=== PATIENT | female | born 1995 | race Caucasian/White ===

== ENCOUNTER → 2020-07-06 16:18 | Outpatient (REF) | payer BC, SELFPAY | LOC: ANHLAB 16:18 | PROVIDERS: PCP Family Medicine; Visit Provider Nurse Practitioner | DX: D22.62 Melanocytic nevi of left upper limb, including shoulder (principal) | CPT/HCPCS: 88305 ==

== ENCOUNTER 2023-04-19 10:09 | Outpatient (CLI) | payer BC, SELFPAY ==
[2023-04-19 10:56] LABS: Hematocrit 36.2 % (37.0-47.0); Hemoglobin 12.2 g/dL (12.0-15.0); Mean Corpuscular HGB Conc 33.7 g/dl (32-36); Mean Corpuscular Hemoglobin 31.9 pg (26-34); Mean Corpuscular Volume 94.8 fl (80-100); Mean Platelet Volume 10.8 fl (7.4-10.4); Platelet Count Result 221 k/mm3 (150-375); Red Blood Count 3.82 M/mm3 (4.2-5.4); Red Cell Distribution Width 12.6 % (11.5-14.5); White Blood Count 10.2 K/mm3 (4.5-10.0)
[2023-04-19 15:39] LABS: Rapid Plasma Reagin Non-Reactive (NonReactive)
== END 2023-04-19 10:10 | disposition home or self-care (01) ==
LOC: ANHLAB 10:11
PROVIDERS: PCP Family Medicine; Visit Provider Obstetrics & Gynecology
DX: Z34.93 Encounter for supervision of normal pregnancy, unspecified, third trimester (principal); Z3A.00 Weeks of gestation of pregnancy not specified
CPT/HCPCS: 36415; 85027; 86592; 86850; 86900; 86901

== ENCOUNTER 2023-04-20 09:57 | Inpatient (IN) | payer BC, SELFPAY ==
[2023-04-20] VITALS (51 sets, daily range): BP systolic 105–155; BP diastolic 54–92; PULSE 61–85; RESP 13–19; TEMP 36.4–36.7; O2SAT 95–100; BMI 35.8
--- NOTE | 2023-04-20 10:46 | LDADM ---
This patient, Ivelisse Gao, was admitted to Labor/Delivery/Recovery 119 on 04/20/23 at 09:57. Plans for labor, pain management and were discussed with patient. Patient/family oriented to hospital policies and general routines including ID bracelet, bed and alarms, visiting hours, pain management, procedures, bathroom and other care routines, personal items, smoking policy, room service/diet and guest tray routines, infant security routines, and visiting hours. Patient/Family are encouraged to report perceived risks to care and to ask questions if they do not understand what they are told or what they should do. See OBIX for further documentation.
[2023-04-20] MEDS: LACTATED RINGERS 1,000 ML 125 ML IV CONT (11:09)
--- NOTE | 2023-04-20 11:50 | PM.IMHP ---
H&P: HPI History of Present Illness Date/Time: 04/20/23 11:50 Chief Complaint: section for breech Narrative: Zofia is a 27yo G1 at 39.1 here for primary CS for breech. has been complicated by COVID during . Growth 86% with a LGA head. BSUS confirms breech just now. Review of Systems Review of Systems: All systems reviewed & are unremarkable except as noted in HPI and below PMFSH Past Medical History Medical History Abdominal pain Ovarian cyst Surgical History Surgical History History of wisdom tooth extraction Family History Family History (Updated 04/04/23 @ 13:53 by Kasey Ray RN) Mother Hypertension Social History Social History Smoking status: Never smoker Second hand tobacco smoke exposure: No Alcohol intake: current Substance use: never Substance use type: does not use Lack of Transportation: No Lack of Food: Never True Current Housing: I Have Housing Concerned About Future Housing: No Difficulty Paying Gas/Electric Bills: No Difficulty Paying for Meds: No Currently Unemployed: No Education: Master's Degree or Higher Difficulty w/ Childcare or Family Care: No Living arrangements: with family Occupation/Education: occupation Gender identity (if verbalized by the patient): Female Sexual Orientation (if Verbalized by the Patient): Straight or Heterosexual Spiritual care concerns: No Meds Home Medications and Allergies Home Medications Medication Instructions Recorded Confirmed Type PNV 153-FA 400 mcg-om3 35 mg-dha 1 tablet PO DAILY 04/04/23 04/20/23 History 25 mg-epa 5 mg-fish oil chew tablet ( Gummies) Allergies Allergy/AdvReac Type Severity Reaction Status Date / Time Agave AdvReac Nausea and Uncoded 04/20/23 10:43 Vomiting Vital Signs Vital Signs - 24 hr 04/20/23 10:21 04/20/23 10:46 04/20/23 11:01 Pulse Rate 79 85 82 Blood Pressure 155/86 H 128/75 126/76 Oxygen Delivery 04/20/23 11:16 04/20/23 11:31 04/20/23 11:46 Pulse Rate 75 72 73 Blood Pressure 118/60 133/80 140/69 Oxygen Delivery 04/20/23 10:45 Pulse Rate Blood Pressure Oxygen Delivery Room Air Exam Const: General: no acute distress Resp: Effort & Inspection: normal respiratory effort Auscultation: clear to auscultation bilaterally Cardio: Rate: regular rate Rhythm: regular rhythm GI: GI Palp: Yes Soft to palpation Extrem: General: normal to inspection Assessment and Plan Assessment and plan (1) Breech presentation: Code(s): O32.1XX0 - Maternal care for breech presentation, not applicable or unspecified Status: Acute Plan FHT category 1 Consented for CS for breech, discussed RBA, will proceed ancef
--- NOTE | 2023-04-20 11:56 | WPDHPUPDATE1 ---
History and Physical Update Update Date/Time: 04/20/23 11:56 History and Physical has been reviewed, including an updated exam of the patient. There are NO changes in the patient's condition. Risks, benefits, and alternatives have been discussed and questions answered. Patient agrees to proceed with procedure.
--- NOTE | 2023-04-20 12:10 | P.PNAN_ITS ---
Anes - Initial Pre Proc Eval Procedure: Operation Date: 04/20/23 12:00 Proposed Procedures p Section - Elizabeth Zapata MD Date/Time: 04/20/23 12:10 Surgeon: Heron Hardy MD Pre Op Diagnosis: c/s Patient Data Age: 27 Gender: F Height: 1.75 m Weight: 110 kg Last Vital Signs Pulse 76 04/20/23 12:01 BP 134/71 04/20/23 12:01 O2 Del Method Room Air 04/20/23 10:45 Allergies Allergy/AdvReac Type Severity Reaction Status Date / Time Agave AdvReac Nausea and Uncoded 04/20/23 10:43 Vomiting Home Medications Medication Instructions Recorded Confirmed Type PNV 153-FA 400 mcg-om3 35 mg-dha 1 tablet PO DAILY 04/04/23 04/20/23 History 25 mg-epa 5 mg-fish oil chew tablet ( Gummies) Patient hx anesthesia problems: none Family hx anesthesia problems: none Results Review: All pre-operative results and documents have been reviewed as part of the pre- operative evaluation. [facility] Past Medical History Medical History Abdominal pain Ovarian cyst Surgical History Surgical History History of wisdom tooth extraction Family History Family History Mother Hypertension Social History Social History Smoking status: Never smoker Second hand tobacco smoke exposure: No Alcohol intake: current Substance use: never Substance use type: does not use Lack of Transportation: No Lack of Food: Never True Current Housing: I Have Housing Concerned About Future Housing: No Difficulty Paying Gas/Electric Bills: No Difficulty Paying for Meds: No Currently Unemployed: No Education: Master's Degree or Higher Difficulty w/ Childcare or Family Care: No Living arrangements: with family Occupation/Education: occupation Gender identity (if verbalized by the patient): Female Sexual Orientation (if Verbalized by the Patient): Straight or Heterosexual Spiritual care concerns: No Anes - Eval Final PreProcedure Day of Procedure 04/20/23 12:10 Patient weight: obese Heart: regular rate and rhythm Lungs: clear to auscultation Airway: Mallampati scale class II Neurological: alert and oriented Last oral intake: >/= 8 hours ASA classification: II Emergent: no Anesthetic plan: proceed Anesthesia type and monitoring: regional spinal and standard monitoring Results Review: All pre-operative results and documents have been reviewed as part of the pre- operative evaluation. Informed Consent: The patient's anesthetic plan and its attendant risks and benefits were discussed with the patient/family/POA. Questions were solicited and answers provided to the satisfaction of the patient/family/POA.
[2023-04-20] MEDS: ceFAZolin 2 GM/D5W 50 ML 2 GM/50 ML BAG IVPB (12:12)
--- NOTE | 2023-04-20 13:26 | P.PCNOB_ITS ---
OB - Delivery Note Procedure Delivery date: 04/20/23 Procedure: Procedures Operation Date: 04/20/23 12:00 <No data on this case meets the specified criteria> primary low transverse section Events: Breech Presentation Route of delivery: Specimen: Yes (placenta) Quantitative Blood Loss (ml): 1,160 Anesthesia type: Spinal Disposition: Floor Complications: hemorrhage from hysterotomy bilateral extensions Narrative: Preop Dx: IUP 39w, breech Post Op Dx: same The patient was taken to the OR and received spinal anesthesia. She was placed in dorsal supine position with left lateral tilt. SCDs and roldan were placed. She was prepped and draped in the normal sterile fashion. A Pfannensteil skin incision was made and carried through to the underlying layer of fascia. The fascia was incised in the midline and then extended laterally using Burkett scissors. The muscles were in the midline and the peritoneum was entered bluntly. The peritoneal incision was extended inf eriorly and superiorly with care to avoid the bladder. The bladder blade was then inserted, the vesicouterine peritoneum was grasped, incised with Metzenbaum scissors, and a bladder flap created. The bladder blade was reinserted. A low transverse uterine incision was made with a scalpel and extended bluntly. AROM was performed and fluid was noted to be clear. The baby was delivered in breech presentation easily. The baby's head extended the hysterotomy laterally in both directions. The baby's oropharynx was suctioned. After 30 seconds, the cord was clamped and cut and the was handed off. Cord blood was obtained and the placenta was then removed manually. The uterus was exteriorized. A moist lap sponge was used to curette the endometrium. The uterine incision was then closed with two layers of 0-Vicryl in a running, locking fashion. The extensions into branches of the uterine arteries on both sides bled briskly but were made hemostatic easily with sutures. Good hemostasis was noted. The posterior cul de sac was irrigated with normal saline and cleared of all clot and debris. The uterus was returned to the abdomen. Both lateral gutters were then irrigated. The rectus muscles were inspected and found to be hemostatic. The fascia was reapproximated using 0-Vicryl in running fashion. The subcutaneous tissue was irrigated with normal saline and made hemostatic with Bovie electrocautery. The subcutaneous tissue was reapproximated with a layer of running 2-0 plain gut. The skin was then closed with absorbable danielle. Steri strips and a bandage were applied. The uterus was evacuated. The patient tolerated the procedure very well. All counts were correct. She was taken to the recovery room in good condition. [place] Baby Date of : 04/20/23 Time of : 12:44 Weeks of gestation at delivery: 39 Infant gender: Male Weight (pounds): 8 Weight (ounces): 4 presentation: steven breech Placenta delivery description: Manual Removal Cord Vessel Description: 3 Vessels and Delayed Cord Clamping score one minute: 8 score five minutes: 9
[2023-04-20] MEDS: HYDROcodone/acetaminophen (*CRX) 5-325 MG TABLET 1 TAB PO (15:28)
[2023-04-20] MEDS: OXYTOCIN 30 UNITS/NS 500 ML 30 UNITS/500 ML BAG 125 UNITS IV CONT (15:33)
[2023-04-20] MEDS: IBUPROFEN 600 MG TABLET PO (16:42)
--- NOTE | 2023-04-20 18:59 | OBPPTRN ---
1542 Patient transferred to post room #279 via stretcher. Support person present. Oriented to unit, room, information board, rooming in, admission packet and security measures. Patient verbalizes understanding.
[2023-04-20] MEDS: DEXTROSE 5%/0.45% SOD CHL 1,000 ML 125 ML IV CONT (19:59)
[2023-04-21] VITALS (7 sets, daily range): BP systolic 106–134; BP diastolic 47–73; PULSE 66–91; RESP 18–22; TEMP 36.3–38.9; O2SAT 97–100
[2023-04-21] MEDS: IBUPROFEN 600 MG TABLET PO ×4 (00:26→20:59)
[2023-04-21] MEDS: HYDROcodone/acetaminophen (*CRX) 5-325 MG TABLET 1 TAB PO ×2 (04:37→21:00)
[2023-04-21 04:38] LABS: Basophils Absolute Auto 0.1 K/mm3 (0.0-0.1); Basophils Percent Auto 0.5 % (0.2-1.2); Eosinophils Percent Auto 0.1 % (0-4.4); Hematocrit 26.5 % (37.0-47.0); Hemoglobin 8.8 g/dL (12.0-15.0); Immature Granulocyte Absolute 0.03 K/mm3 (0.00-0.031); Immature Granulocyte Percent A 0.3 % (0-0.5); Lymphocytes Absolute Auto 1.32 K/mm3 (0.9-3.2); Lymphocytes Percent Auto 12.6 % (18.3-44.2); Mean Corpuscular HGB Conc 33.2 g/dl (32-36); Mean Corpuscular Hemoglobin 32.4 pg (26-34); Mean Corpuscular Volume 97.4 fl (80-100); Mean Platelet Volume 10.7 fl (7.4-10.4); Monocytes Absolute Auto 0.7 K/mm3 (0.1-0.6); Monocytes Percent Auto 6.9 % (2.6-8.5); Neutrophils Absolute Auto 8.3 K/mm3 (1.3-6.7); Neutrophils Percent Auto 79.6 % (45.5-73.1); Platelet Count Result 154 k/mm3 (150-375); Red Blood Count 2.72 M/mm3 (4.2-5.4); Red Cell Distribution Width 12.8 % (11.5-14.5); White Blood Count 10.4 K/mm3 (4.5-10.0)
--- NOTE | 2023-04-21 05:22 | P.PNOB_ITS ---
OB - PN: Subj Subjective Date/time seen: 04/21/23 05:22 Interval history: pp day 1 primary section, breech presentation doing well pain management breast feeding plan IV iron OB - PN: Obj Data Labs 04/21/23 04:34 Labs: Laboratory Results - last 24 hr 04/21/23 04:34 WBC 10.4 H RBC 2.72 L Hgb 8.8 L D Hct 26.5 L MCV 97.4 MCH 32.4 MCHC 33.2 RDW 12.8 Plt Count 154 MPV 10.7 H Immature Gran % (Auto) 0.3 Neut % (Auto) 79.6 H Lymph % (Auto) 12.6 L Johnston % (Auto) 6.9 Eos % (Auto) 0.1 Baso % (Auto) 0.5 Lymph # (Auto) 1.32 Johnston # (Auto) 0.7 H Eos # (Auto) 0.0 Baso # (Auto) 0.1 Abs Immat Gran (auto) 0.03 Absolute Neuts (auto) 8.3 H Absolute Nucleated RBC 0.0 Nucleated RBC % 0.0 OB - PN A/P Plan day: 1 Plan: routine care Time Spent With Patient Time: Total time spent is greater than 50% in coordination of care (as documented) at patient's floor/unit and/or counseling patient: Review of Systems Review of Systems: All systems reviewed & are unremarkable except as noted in HPI and below Exam Const: General: cooperative and healthy appearing Chest: Chest palpation & inspection: normal inspection of the chest Resp: Effort & Inspection: normal respiratory effort Cardio: Rate: regular rate Rhythm: regular rhythm GI: Other: incision CDI Back/Spine/Pelvis: Back: no CVA tenderness Skin: General skin exam: normal color Neuro: General: patient oriented x3 Extrem: Right lower extremity: edema Left lower extremity: edema Psych: Appearance: grossly normal
[2023-04-21] MEDS: DOCUSATE SODIUM 100 MG CAPSULE PO ×2 (07:23→17:16)
[2023-04-21] MEDS: IRON SUCROSE COMPLEX 400 MG in SODIUM CHLORIDE 0.9% IV 250 ML 108 MG IVPB (07:23)
[2023-04-21] MEDS: HYDROcodone/acetaminophen (*CRX) 10-325 MG TABLET 1 TAB PO ×3 (07:25→17:15)
[2023-04-21] MEDS: MULTIVIT/MIN/PREN/FOL AC/IRON TABLET 1 TAB PO (10:15)
--- NOTE | 2023-04-21 12:54 | WPDANLDPN2 ---
Anes-Prog Note L&D Date/Time: 04/21/23 12:54 Comfortable throughout: section Neuraxial method: spinal Epidural/Spinal procedure site: clean & non-tender Neuro status: Neuro function grossly intact. Cardiovascular status: normal Respiratory status: normal Airway patency: baseline Mental status: baseline Post-Op hydration status: normal Vital Signs: Last Vital Signs Temp 98.1 F 04/21/23 07:15 Pulse 66 04/21/23 07:15 Resp 18 04/21/23 07:15 BP 106/56 L 04/21/23 07:15 Pulse Ox 97 04/21/23 07:15 O2 Del Method Room Air 04/21/23 04:51 Pain score (VAS): 6 I/O: Intake & Output 04/20/23 04/21/23 04/21/23 23:59 07:59 15:59 Intake Total 1500 2900 1000 Output Total 3600 1000 Balance 1500 -700 0 Post-procedural complaints: none Patient feedback: Patient satisfied with anesthetic care.
--- NOTE | 2023-04-21 12:55 | WPDANLDNPN2 ---
Anes-Prog Note L&D-Neuraxial Date/Time: 04/21/23 12:55 Neuraxial medications: intrathecal PF morphine Opiod-related complaints: none Patient feedback: Patient satisfied with post-operative pain management.
[2023-04-21] MEDS: AMPICILLIN 2 GM/NS 100 ML 2 GM/100 ML BAG IVPB (14:55)
[2023-04-21] MEDS: CLINDAMYCIN 900 MG/D5W 50 ML 900 MG/50 ML PIGGYBACK 50 MG IVPB (17:11)
[2023-04-21] MEDS: SODIUM CHLORIDE 0.9% IV 250 ML 30 ML (17:16)
[2023-04-21] MEDS: AMPICILLIN 1 GM/NS 50 ML 1 GM/50 ML BAG IVPB (20:50)
[2023-04-22] MEDS: CLINDAMYCIN 900 MG/D5W 50 ML 900 MG/50 ML PIGGYBACK 50 MG IVPB ×3 (00:50→17:35)
[2023-04-22] MEDS: AMPICILLIN 1 GM/NS 50 ML 1 GM/50 ML BAG IVPB ×3 (02:38→14:12)
[2023-04-22] MEDS: ONDANSETRON INJ 4 MG/2 ML VIAL IV PUSH (02:51)
[2023-04-22 03:05] VITALS: TEMP 37
[2023-04-22 03:40] LABS: Gentamicin Random 1.5 ug/mL (5.0-12.0)
[2023-04-22] MEDS: HYDROcodone/acetaminophen (*CRX) 5-325 MG TABLET 1 TAB PO ×4 (04:06→21:30)
[2023-04-22] MEDS: IBUPROFEN 600 MG TABLET PO ×3 (04:08→17:36)
[2023-04-22 08:35] VITALS: BP 125/72; PULSE 76; RESP 18; TEMP 36.7
--- NOTE | 2023-04-22 09:51 | PM.OBPNVD ---
OB - PN: Subj Subjective Date/time seen: 04/22/23 09:51 Interval history: pp day 1 primary section, breech presentation doing well pain management breast feeding plan IV iron Patient comments: no complaints, pain well controlled, incisional pain, tolerating diet and flatus present OB - PN: Obj Data Labs 04/21/23 04:34 Labs: Laboratory Results - last 24 hr 04/22/23 02:47 Random Gentamicin 1.5 L OB - PN A/P Plan day: 2 Plan: routine care Comments: POD#2 LTCS - no problems, Time Spent With Patient Time: Total time spent is greater than 50% in coordination of care (as documented) at patient's floor/unit and/or counseling patient: Exam Const: General: comfortable, no acute distress and alert Resp: Effort & Inspection: normal respiratory effort Auscultation: no crackles, no rales and no rhonchi Cardio: Rate: regular rate Heart sounds: no click, no murmurs and no rubs GI: Inspection: non-distended GI Palp: No Tenderness to palpation present (GI) Auscultation: normal bowel sounds Other: Incision - CDI Extrem: General: normal to inspection, no pedal edema and no calf tenderness
[2023-04-22] MEDS: DOCUSATE SODIUM 100 MG CAPSULE PO ×2 (10:01→17:36)
[2023-04-22] MEDS: MULTIVIT/MIN/PREN/FOL AC/IRON TABLET 1 TAB PO (10:01)
[2023-04-22] MEDS: POLYSACCHARIDE IRON COMPLEX 150 MG CAPSULE PO ×2 (10:02→17:36)
--- NOTE | 2023-04-22 16:00 | PC.NURSE ---
Infant taken to level II nsy via open crib. report given to Almita Torres RN
--- NOTE | 2023-04-22 18:25 | PC.NURSE ---
Pt and to level II nsy to see baby.
[2023-04-22 20:00] VITALS: BP 132/77; PULSE 77; RESP 18; TEMP 37.1
--- NOTE | 2023-04-22 20:15 | PC.NURSE ---
Parents requested an update on the results of the lab work that was done on baby. Results given.
--- NOTE | 2023-04-22 21:33 | PC.NURSE ---
Patient left on a therapeutic pass to see infant at [facility]. Educated to arrive back to the unit by 0330.
--- NOTE | 2023-04-23 03:38 | PC.NURSE ---
Patient arrived back on the floor from therapeutic pass on 04/23 @ 0338.
[2023-04-23] MEDS: IBUPROFEN 600 MG TABLET PO (03:56)
[2023-04-23] MEDS: HYDROcodone/acetaminophen (*CRX) 10-325 MG TABLET 1 TAB PO (03:56)
[2023-04-23] MEDS: MELATONIN 5 MG TABLET PO (04:39)
[2023-04-23 08:00] VITALS: BP 114/61; PULSE 68; RESP 16; TEMP 36.9; O2SAT 98
[2023-04-23] MEDS: MULTIVIT/MIN/PREN/FOL AC/IRON TABLET 1 TAB PO (08:20)
[2023-04-23] MEDS: POLYSACCHARIDE IRON COMPLEX 150 MG CAPSULE PO (08:20)
[2023-04-23] MEDS: DOCUSATE SODIUM 100 MG CAPSULE PO (08:20)
[2023-04-23] MEDS: HYDROcodone/acetaminophen (*CRX) 5-325 MG TABLET 1 TAB PO (08:20)
--- NOTE | 2023-04-23 08:52 | PM.OBPNVD ---
OB - PN: Subj Subjective Date/time seen: 04/23/23 08:52 Patient comments: no complaints and pain well controlled baby status: NICU [place] feeding status: pumping and storing Narrative: Baby doing well in NICU, so far no sz confirmed. awaiting labs and spinal tap results. Zofia is afebrile since antibiotics DCed. OB - PN: Obj Data Labs 04/21/23 04:34 OB - PN A/P Assessment and Plan (1) delivery delivered: Code(s): O82 - Encounter for delivery without indication Status: Acute Plan day: 3 Plan: discharge home Comments: DC instructions given Time Spent With Patient Time: Total time spent is greater than 50% in coordination of care (as documented) at patient's floor/unit and/or counseling patient: Exam Narrative: NAD abdomen soft, appropriately tender, incision CDI Extremities nontender with 1+ edema
--- NOTE | 2023-04-23 08:59 | PM.OBDSVD ---
DS: Admitting Diagnosis Discharge Date 04/23/23 Admitting Diagnosis term IUP, breech DS: Discharge Diagnosis Discharge Diagnosis (1) delivery delivered: Code(s): O82 - Encounter for delivery without indication Status: Acute OB - DS: Summary Hospital Course Hospital Course: Zofia was admitted for a scheduled section for breech presentation. Her delivery was uncomplicated. She developed a fever on POD 1 and received antibiotics for 24 hours and was afebrile after that. She was discharged home on POD 3 because baby had been transferred to the NICU. OB Procedures : Ultrasound OB Procedures Intrapartum: OB Procedures: : Antibiotics Peripartum Data Infant Delivery Method: Section Procedures: Procedures Operation Date: 04/20/23 12:00 Actual Procedure Side Surgeon p Section Not Applicable Elizabeth Zapata MD complications: other (febrile, uncertain source of infection) Status at Discharge Functional status at discharge: independent ambulation Time Spent with Patient Time attestation: Total time spent providing and/or coordinating discharge services: Exam Narrative: NAD abdomen soft, appropriately tender, incision CDI Discharge Plan Discharge Attending physician on discharge: Elizabeth Zapata Discharging Clinician: Elizabeth Zapata Anticipated Discharge Date/Time: 04/23/23 08:56 Patient Disposition: Home, Self-Care Activity: may drive after 2 weeks and pelvic rest Diet: regular Patient Instructions: Antibiotic Form Stand Alone Forms: General Discharge Information Follow-up/Referrals: Elizabeth Zapata MD [Physician] - Discharge Medications: New hydrocodone-acetaminophen 5-325 mg Tablet 1 tablet PO Q4-5H PRN (Reason: Moderate Pain (4-6)) Qty: 30 0RF docusate sodium 100 mg Capsule 100 mg PO BID Qty: 60 0RF ibuprofen 600 mg Tablet 600 mg PO Q6H PRN (Reason: Cramping) Qty: 60 0RF Continued Gummies 400 mcg-35 mg- 25 mg-5 mg Tablet,Chewable 1 tablet PO DAILY Date of admission: 04/20/23 09:57 Primary Care Provider: Fredi Hankins Admitting Provider: Heron Hardy Attending physician on admission: Heron Hardy Condition: Stable
--- NOTE | 2023-04-23 09:14 | PC.NURSE ---
[id number] Introductions were made, then consulted with patient to assess needs related to pumping and . Mother led the conversation with her?plans to feed?her infant, the?experience so far stating infant did latch after and storing milk for her infant. Mother has a family member milk automotive buyer to transport her copious first milk to [facility]. We discussed milk production, Symphony (electric) vs Shilpa (portable) pumps and recommended electric rather than a temporary pump. Encouraged using [facility] pumps while is admitted if is not latching, then reviewed with infant effectively she will not necessarily need to pump. Resources provided for inpatient and outpatient services with the mom/baby guide and EBTF handout. Mother voiced understanding of information and will call if she has other questions or concerns.
== END 2023-04-23 11:18 | disposition home or self-care (01) | DRG 787 ==
LOC: ANHLDR 10:02 → ANHOB2 15:45
PROVIDERS: Advanced Practice Midwife; Obstetrics & Gynecology; Admitting Provider Obstetrics & Gynecology; PCP Family Medicine; Visit Provider Obstetrics & Gynecology
PROC: 10D00Z1 Extraction of Products of Conception, Low, Open Approach (ICD-10-PCS; CPT 59514; principal; 2023-04-20 12:00)
DX: O32.1XX0 Maternal care for breech presentation, not applicable or unspecified (principal); O75.2 Pyrexia during labor, not elsewhere classified; O36.63X0 Maternal care for excessive fetal growth, third trimester, not applicable or unspecified; Z3A.39 39 weeks gestation of pregnancy; Z37.0 Single live birth; Z86.16 Personal history of COVID-19
CPT/HCPCS: 36415; 80170; 85025; A9270; J0290; J0690; J1580; J1756; J1885; J2274; J2371; J2405; J2590; J7050; J7120

== ENCOUNTER 2024-09-04 10:50 | Emergency (ER) | payer OTHER, SELFPAY ==
--- NOTE | 2024-09-04 10:51 | ED_ITS ---
HPI - URI/Sore Throat General Chief Complaint: Upper Respiratory Infection Stated Complaint: sore throat / RT Eye Swollen / cough Time Seen by Provider: 09/04/24 10:51 Source: patient Mode of arrival: ambulatory Limitations: no limitations History of Present Illness HPI Narrative: Patient is a 28 year-old female presents with runny nose, sore throat, cough and right eye irritation swelling for 2 days. Denies any fever, chills, nausea, vomiting, diarrhea. Has not taken anything for symptoms. Related Data Allergies Allergy/AdvReac Type Severity Reaction Status Date / Time Agave AdvReac Nausea and Uncoded 09/04/24 11:07 Vomiting Review of Systems Review of Systems: All systems reviewed & are unremarkable except as noted in HPI and below Constitutional: Constitutional: Denies body ache(s), Denies chills, Denies fatigue, Denies fever(s), Denies headache(s), Denies malaise and Denies weakness Eyes: Eyes: Denies blurry vision, Denies itchy eyes, Denies loss of vision and Reports eye pain ENT: Denies otalgia, Denies headache(s), Reports nasal congestion, Denies sinus pain and Reports sore throat Cardiovascular: Cardiovascular: Denies chest pain, Denies irregular heart rhythm and Denies dyspnea Respiratory: Respiratory: Reports cough and Denies dyspnea Gastrointestinal: Gastrointestinal: Denies abdominal pain, Denies diarrhea, Denies nausea and Denies vomiting Musculoskeletal: Musculoskeletal: Denies back pain, Denies myalgias and Denies arthralgias Integumentary/Breasts: Skin/Breast: Denies pruritus and Denies rash Neurologic: Denies headache(s), Denies loss of vision and Denies weakness Psychiatric: Psychiatric: Reports no additional psychiatric complaints Endocrine: Endocrine: Denies fatigue Allergic/Immunologic: Allergic/Immunologic: Denies itchy eyes PMFSH Past Medical History Medical History Ovarian cyst Abdominal pain Surgical History Surgical History History of wisdom tooth extraction Family History Family History Mother Hypertension Social History Social History Smoking status: Never smoker Second hand tobacco smoke exposure: No Alcohol intake: current Substance use: never Substance use type: does not use Lack of Transportation: No Lack of Food: Never True Current Housing: I Have Housing Concerned About Future Housing: No Difficulty Paying Gas/Electric Bills: No Difficulty Paying for Meds: No Currently Unemployed: No Education: Master's Degree or Higher Difficulty w/ Childcare or Family Care: No Living arrangements: with family Occupation/Education: occupation Gender identity (if verbalized by the patient): Female Sexual Orientation (if Verbalized by the Patient): Straight or Heterosexual Spiritual care concerns: No Comments At time of signature, agree with nursing past medical, surgical, social and family history. There is no relevant family history pertinent to the presenting complaint. Exam Const: General: cooperative, healthy appearing, comfortable, no acute distress and well nourished Nutritional Appearance: well nourished Orientation/consciousness: patient oriented x3 Limitations: no limitations HENMT: Head: normal to inspection, normocephalic and atraumatic Ears: hearing grossly normal bilaterally, external ears normal, TM's normal bilaterally, EAC's normal and no periauricular adenopathy Face/Nose/Sinus: Normal external nose present, Abnormal mucous membranes and turbinates present erythematous bilateral and diffuse, normal facial exam, sinuses nontender and face symmetric Face and sinus: normal facial exam, sinuses nontender and face symmetric Mouth: Yes Normal oral and palatal mucosa present, Yes lip normal, Yes tongue normal, Yes Normal salivary glands and ducts present, Yes oropharynx normal and Yes moist mucous membranes Teeth and gingiva: dentition normal Throat: posterior oropharynx normal, tonsils normal and uvula midline Eyes: General: appearance normal, both eyes and all related structures Alignment and Position: alignment normal and position normal Periorbital: periorbital findings normal Eyelids: eyelid abnormality right upper eyelid lid margins crusty/scaly, swelling and tenderness Pupils: Equal, round and reactive pupils present Neck: Neck: normal visual inspection, full ROM, no lymphadenopathy and supple Chest: Chest palpation & inspection: normal inspection of the chest and normal palpation of entire chest wall Resp: Effort & Inspection: normal respiratory effort and able to speak in complete sentences Auscultation: clear to auscultation bilaterally, no crackles, no rales, no rhonchi and no wheezes Cardio: Rate: regular rate Rhythm: regular rhythm Heart sounds: S1 normal heart sound present and S2 normal heart sound present GI: Inspection: normal to inspection Skin: General skin exam: normal color and no rashes or lesions noted Neuro: General: patient oriented x3 and moves all extremities Cranial nerves: Yes Equal, round and reactive pupils present Speech: normal speech Gait exam (Neuro): Normal gait present Extrem: General: normal to inspection, full ROM and no edema Psych: Appearance: grossly normal and well kempt Mental Status: mental status grossly normal Speech and movement: Normal speech and movement present Affect: normal affect Attitude: cooperative Thought process: Normal thought process present Course Course Emergency Course: Discharge instructions reviewed with patient, as well as provided in writing per nursing staff. The instructions also include specific and strict return/GO TO THE ER as well as f/u information. All questions have been answered, and the patient deny any further questions with discharge and discharge plan. Portions of this record may have been created with voice recognition software Level of Care: Express Care Visit Vital Signs Vital signs: Vital Signs Temperature 37.2 C 09/04/24 11:01 Pulse Rate 75 09/04/24 11:01 Respiratory Rate 18 09/04/24 11:01 Blood Pressure 130/90 09/04/24 11:01 Pulse Oximetry 98 09/04/24 11:01 Oxygen Delivery Room Air 09/04/24 11:01 Temperature 37.2 C 09/04/24 11:01 Pulse Rate 75 09/04/24 11:01 Respiratory Rate 18 09/04/24 11:01 Blood Pressure 130/90 09/04/24 11:01 Pulse Oximetry 98 09/04/24 11:01 Oxygen Delivery Room Air 09/04/24 11:01 Reviewed MDM - URI/Sore Throat MDM Narrative Medical decision making narrative: Pt well hydrated appearing, in no respiratory distress, hemodynamically stable. Recommend supportive care. The patient is stable at time of discharge the clinical impression was discussed and the patient was given the opportunity to ask questions, which were addressed as completely as possible given the information available at present. Anticipatory guidance and return to care precautions were discussed and the importance of primary care follow-up was stressed and encouraged. The patient voiced understanding of the plan, indications to return, and the need for follow-up. Differential diagnosis considered: Berry virus, strep pharyngitis, allergic rhinitis, upper respiratory tract infection, sinusitis, rhinosinusitis, nasopharyngitis. viral pharyngitis, otitis media, otitis externa, otitis effusion, foreign body, cerumen impaction, viral syndrome, and influenza.? Exam findings show no acute concerns or changes; patient is non-toxic appearing and is in no distress.? Patient is appropriate for outpatient treatment and follow- up.? Medical Records Attestation: I reviewed the patient's medical records. Lab Data Attestation: I reviewed the patient's lab results. Labs: Lab Results 09/04/24 09/04/24 Range/Units 11:27 11:32 POC Urine HCG, Qual Negative (Negative) POC Influenza A Ag Negative (Negative) POC Influenza B Ag Negative (Negative) POC SARS CoV-2 Ag Negative (Negative) POC Grp A Strep Screen Negative (Negative) Discharge Plan Discharge Clinical Impression: Upper respiratory infection Qualifiers: URI type: unspecified viral URI Qualified Code(s): J06.9 - Acute upper respiratory infection, unspecified Blepharitis Qualifiers: Blepharitis type: squamous Laterality: right Eyelid: upper Qualified Code(s): H01.021 - Squamous blepharitis right upper eyelid Patient Disposition: Home, Self-Care Condition: Stable Instructions: Blepharitis (ED), Upper Respiratory Infection (ED) Additional Instructions: Your rapid strep swab was negative today at [facility]. A throat culture will be sent to the laboratory for further testing. If the test is positive, you will receive a phone call within 48 hours and an appropriate antibiotic will be initiated at that time. Your Covid and flu are both negative Your symptoms are likely due to a viral illness, which is not treated with antibiotics. Viral symptoms can be present for up to a few weeks. -For pain/fever, you may take: Tylenol 650-1000mg by mouth every 4-6 hours. Do not exceed 4000mg in 24 hours. Advil (Ibuprofen) 600 mg by mouth every 6 hours. Do not exceed 2400mg in 24 hours. 8 AM: Tylenol 11 AM: Ibuprofen 2 PM: Tylenol 5 PM: Ibuprofen 8 PM: Tylenol 11 PM: Ibuprofen 2 AM: Tylenol 5 AM: Ibuprofen -Antihistamine medication such as Benadryl/Zyrtec at night and Claritin/Shagufta during the day can help improve symptoms. -Use Flonase twice a day for 5 days then daily to help reduce the inflammation and dry up your sinuses. -You can also use Sudafed behind the pharmacy counter(12 or 24 hour). Be sure to drink plenty of water with these medications at least 8 ounces with every dose and it is important to drink 8 to 10 glasses of water per day. Water is a natural decongestant -Eat and drink things that are easy to swallow, like tea or soup, or popsicles. -Oral rinses such as: Salt water gargles and/or may use topical anesthetic (eg. Chloraseptic spray) or lozenges to relieve dryness or throat pain). -Frequent hand washing or hand assembler seat is one of the best ways to prevent spread of infection. -Using a vaporizer or humidifier at night will also help thin secretions and help with coughing up phlegm. -Follow up with primary care provider in 3-5 days if condition is not improving - For new or worsening symptoms go directly to the nearest ER Use antibiotic ointment is prescribed Apply warm compress to close the lid for 5-10 minutes, 2-4 times daily. Wash lids with a mixture of baby shampoo and water. Consider artificial tears to treat dry eye. Take a Claritin. If eyelid continues to swell, increased area of redness, or large amounts of crusting around eyelashes, go to primary care provider or eye doctor as that may require antibiotics. If you have any changes in vision go directly to the emergency department. Patient Language: Latvian Prescriptions: New benzonatate 100 mg capsule 100 mg PO BID PRN (Reason: cough) Qty: 14 0RF erythromycin 5 mg/gram (0.5 %) ointment 0.5 inch RIGHT EYE QID 5 Days Qty: 3.5 0RF fluticasone propionate [Flonase Allergy Relief] 50 mcg/actuation spray,suspension 1 spray intranasal DAILY Qty: 16 0RF Rx Instructions: administer into each nostril (DME) Aerochamber MV Spacer See Rx Instructions .Route Qty: 1 0RF Rx Instructions: As directed albuterol sulfate 90 mcg/actuation HFA aerosol inhaler 2 puff inhalation QID PRN (Reason: shortness of breath or wheezing) Qty: 6.7 0RF Follow-up/Referrals: Fredi Hankins MD [Primary Care Provider] - 3 Days Stand Alone Forms: Work/School Release IP Time of Disposition: 11:56
[2024-09-04 11:01] VITALS: BP 130/90; PULSE 75; RESP 18; TEMP 37.2; O2SAT 98
--- OUTSIDE RECORDS SUMMARY | 2024-09-04 11:05 | XMS_ITS | Clinical Summary ---
Author Organization [facility] Address [address] [place] [id number] Care Team Providers Care Group Care Worker Name Role Phone Fredi Hankins MD Primary Care Provider [phone] Allergies Active Allergy Reactions Criticality Noted Date Comments Agave Other (see comment) 07/07/2024 Flu like symptoms Encounters Date Type Department Care Team Description 07/07/2024 11:00 AM [employer] Office Visit [facility] Medical [facility] Occupational Health [address] [place] [address] Alayna Hidalgo NP Physical 07/07/2024 9:59 AM [employer] - 07/07/2024 11:59 PM [employer] Hospital Encounter [facility] [address] [place] [address] Alayna Hidalgo NP Discharge Disposition: Home or Self Care (Routine Discharge) 07/07/2024 Travel from Last 3 Months Social History Tobacco Use Types Packs/Day Years Used Date Smoking Tobacco: Never Smokeless Tobacco: Never Tobacco Cessation:Counseling Given: No Alcohol Use Standard Drinks/Week Comments Yes 0 (1 standard drink = 0.6 oz pur e alcohol) Comments Unknown Sex and Gender Information Value Date Recorded Sex Assigned at Not on file Legal Sex Female 3:51 PM [employer] Gender Identity Not on file Sexual Orientation Not on file Last Filed Vital Signs Vital Sign Reading Time Taken Comments Blood Pressure 134/76 07/07/2024 11:28 AM [employer] Pulse 64 07/07/2024 11:28 AM [employer] Temperature 37.4 C (99.3 F) 07/07/2024 11:28 AM [employer] Respiratory Rate 18 07/07/2024 11:2 8 AM [employer] Oxygen Saturation 100% 07/07/2024 11: 28 AM [employer] Inhaled Oxygen Concentration - - Weight 91.1 kg (200 lb 12.8 oz) 024 11:28 AM [employer] Height 175.3 cm (5' 9 ) 07/07/2024 11:2 8 AM [employer] Body Mass Index 29.65 07/07/2024 11:28 AM [employer] Plan of Treatment Health Maintenance Due Date Last Done Comments Cervical Cancer Screening Pa p Smear (Age 21 to 29) Every 3 Years 1994 Cervical Cancer Screening 1994 PHQ-2 (Physician [place]) 2006 Hepatitis C 2012 Hepatitis B Vaccines (1 of 3 - 19+ 3-dose series) 2013 COVID-19 Vaccine (2023-2 5 season) 2024 Influenza Adult (#1) 2024 PHQ-2 (Physician [place]) 07/30/2024 Annual Physical 07/07/2025 07/07/2024 DTaP, Tdap and Td Vaccines ( 2 - Td or Tdap) 03/08/2033 03/08/2023 HPV Vaccines Aged Out No longer eligi ble based on patient's age to complete this topic Meningococcal B Vaccine Aged Out No l onger eligible based on patient's age to complete this topic Meningococcal Vaccine Aged Out No treasure jamil eligible based on patient's age to complete this topic Pneumococcal Vaccine: Pediat rics (0 to 5 Years) and At-Risk Patients (6 to 64 Years) Aged Out No longer eligi ble based on patient's age to complete this topic RSV Immunizations Under 20 Months Aged Out No longer eligible based on patient's age to complete this topic Procedures Procedure Name Priority Date/Time Associated Diagnosis Comments GLUCOSE BLOOD, QNT Routine 07/07/2024 11 :17 AM [employer] Encounter for screening LIPID PANEL Routine 07/07/2024 11:17 AM [employer] Encounter for screening from Last 3 Months Results * (ABNORMAL) LIPID PANEL (07/07/2024 11:17 AM [employer]) CHOLESTEROL 225(H) <200 MG/DL 07/09/2024 10:18 AM [facility] TRIGLYCERIDES 108 <150 MG/DL 07/09/2024 10:18 AM [facility] HDL 58 >40.0 MG/DL 07/09/2024 10:18 AM [facility] LDL (CALCULATED) 145(H) <100 MG/DL 07/09/2024 10:18 AM [facility] NON HDL CHOLESTEROL 167(H) <130 MG/DL 07/09/2024 10:18 AM [facility] Comment: NOTE: WHEN THE TRIGLYCERIDES ARE >200 mg/dL, NON HDL C IS A SECONDARY TARGET OF THERAPY, WITH A GOAL 30 mg/dL HIGHER THAN THE IDENTIFIED LDL C GOAL. CHOL/HDL RATIO 3.9 0.0 - 4.5 07/09/2024 10:18 AM [facility] VLDL CALCULATION 22 5 - 55 MG/DL 07/09/2024 10:18 AM [facility] LIPID INTERPRETATION 07/09/2024 10:18 AM [facility] Comment: [facility] CONCENSUS REPORT RECOMMENDATIONS: ADULT CHILD LOW RISK: CHOLESTEROL <200 <170 TRIGLYCERIDE <150 --- HDL >=60 --- LDL <100 <110 BORDERLINE: CHOLESTEROL 200-239 170-199 TRIGLYCERIDE 150-199 --- HDL 40-59 --- LDL 100-159 110-129 HIGH RISK: CHOLESTEROL >=240 >=200 TRIGLYCERIDE >=200 --- HDL <40 --- LDL >=160 >=130 07/07/2024 11:1 7 AM [employer] us Alayna Hidalgo NP LABORATORY Final Result [facility] [address] [place] [address], [place] [phone] * GLUCOSE BLOOD, QNT (07/07/2024 11:17 AM [employer]) GLUCOSE 91 70 - 99 MG/DL 07/09/2024 10:18 AM [employer] [facility] 07/07/2024 11:1 7 AM [employer] us Alayna Hidalgo [facility] Final Result [facility] [address] [place] [address], from Last 3 Months Care Teams Group Care Worker Relationship Specialty Start Date End Date Fredi Hankins MD [address] [place] [address] PCP - General FAMILY PRACTICE 07/07/24
--- OUTSIDE RECORDS SUMMARY | 2024-09-04 11:05 | XMS_ITS | Data Portability ---
Author Organization [facility] [place] Address [address] [place] [address] Care Team Providers Care Range Aid Name Role Phone BEST RUGGIERO Primary Care Provider Assessment Encounter Date Assessment Date Assessment LastModified by Organization Details LastModified Time 01/23/2024 01/23/2024 Annual gynecological exam performed. Patient will come back in a year unless there are new symptoms. [email or web address] Not available 01/23/2024 16:34:08 Plan of Treatment Reminders Order Date Submit Date Provider Last Modified By Organization Details Last Modified Time Details Appointments None record ed. Lab None record ed. Referral None record ed. Procedures None record ed. Surgeries None record ed. Imaging None record ed. Medication Orders None record ed. Patient TargetsNo targets recorded. Patient InstructionsNo instructions recorded. Reason for Referral None Reported. Results Created Date Observation Date Name Description Value Unit Range Abnormal Flag Note LastModifiedBy Organization Detail LastModifiedTime 03/19/2003/19/2023 US, obste tric, follo w-up No observ ation record ed. [email or web address] Tell [address], [place], [address], 03/19/2023 18:13:43 03/19/20 23 03/19/2023 US, obste tric, follo w-up No observ ation record ed. MONIQUE Rubi [address], [place], [address], 03/26/2023 10:04:48 04/10/20 23 04/10/2023 US, obste tric, follo w-up No observ ation record ed. christoph Tell [address], [place], [address], 04/10/2023 17:21:42 04/10/20 23 04/10/2023 US, obste tric, follo w-up No observ ation record ed. MONIQUE Elicia [address], [place], [address], 05/06/2023 05:25:50 Result Notes None recorded. Problems Name Problem SNOMED Code Status Onset Date Resolution Date Notes Provider Name and Address Organization Details Recorded Time Pregnanc y 46248522 Completed 202204/26/2023 Nedarachell Duenasle [facility], [facility] 3 15:14:11 SARS-CoV -2 Completed ASA & serial growth Elizabeth Zapata MD [address], [place], [address], [facility] 3 16:24:20 History of SARS-CoV -2 94786926211 1888191 Completed 2022 ASA & serial growth Ramona Barron [facility], [facility] 3 15:14:05 History of SARS-CoV -2 42941625051 2312884 Active 2022 ASA & serial growth Nedarachell Duenasle [facility], [facility] 3 15:14:05 Breech presenta tion 8432806 Completed 2022 Nedasantiagoy Beatrice [facility], [facility] 3 15:14:05 Breech presenta tion 2217468 Active 2022 Nedasantiagoy Ebatrice [facility], [facility] 3 15:14:05 Problem Notes None recorded. Procedures Surgical History Date Name Laterality Status Provider Name and Address Organization Details Recorded Time 04/20/20 23 SECTION (SURG) completed Lyudmila Evans [facility] 04/23/2023 10:38:32 11/11/19 22 Date of Last Pap Smear completed FERNANDO ARMENTA MD [address], [place], [address], [facility] 05/21/2023 14:23:44 07/30/19 08 extraction of wisdom tooth completed Harriet Hinkel [facility] 09/19/2022 17:29:38 Imaging Results Imaging Date Name Status LastModified by Organiz ation Details LastModified Time 03/19/2023 US, obstetric, follow-up completed [address], [place], [address], 03/19/2023 18:13:43 03/19/2023 US, obstetric, follow-up completed MONIQUE Rubi [address], [place], [address], 03/26/2023 10:04:48 04/10/2023 US, obstetric, follow-up completed christoph Tell [address], [place], [address], 04/10/2023 17:21:42 04/10/2023 US, obstetric, follow-up active MONIQUE Rubi [address], [place], [address], 05/06/2023 05:25:50 Procedure Notes None recorded. Medical Equipment None Reported. Allergies No known drug allergies Medications Name Sig Start Date Stop Date Status Note LastModified by Organization Details LastModified Time prednisone 10 mg tablet TAKE 6 TABLETS BY MOUTH ON DAY 1 THEN DECREASE BY 1 TABLET DAILY FOR NEXT 5 DAYS 09/19 completed Not Available Not Available Not Available azithromyci n 250 mg tablet TAKE 2 TABLETS BY MOUTH FOR 1 DAY THEN TAKE 1 TABLET BY MOUTH DAILY FOR 4 DAYS 09/19 completed Not Available Not Available Not Available hydrocodone 5 mg-acetamin ophen 325 mg tablet TAKE 1 TABLET BY MOUTH EVERY 4 TO 5 HOURS NEEDED FOR MODERATE PAIN 04/26 completed Not Available Not Available Not Available promethazin e 12.5 mg tablet TAKE 1 TABLET BY MOUTH TWICE DAILY 11/01 completed Not Available Not Available Not Available prednisone 20 mg tablet TAKE 3 TABLETS BY MOUTH EVERY DAY FOR 5 DAYS 09/19 completed Not Available Not Available Not Available acetaminoph en 300 mg-codeine 30 mg tablet TK 2 TS PO Q 6 H PRN P 11/10 completed Not Available Not Available Not Available ciprofloxac in 250 mg tablet TK 1 T PO BID FOR 3 DAYS 11/10 completed Not Available Not Available Not Available benzonatate 100 mg capsule TAKE 1 CAPSULE BY MOUTH EVERY 8 HOURS NEEDED 09/19 completed Not Available Not Available Not Available docusate sodium 100 mg capsule TAKE 1 CAPSULE BY MOUTH TWICE DAILY 01/22 completed Not Available Not Available Not Available ibuprofen 600 mg tablet TAKE 1 TABLET BY MOUTH EVERY 6 HOURS NEEDED FOR CRAMPING active Not Available Not Available No t Available levofloxaci n 500 mg tablet TAKE 1 TABLET BY MOUTH DAILY 09/19 completed Not Available Not Available Not Available methylpredn isolone 4 mg tablets in a dose pack FOLLOW PACKAGE DIRECTION S 11/10 completed Not Available Not Available Not Available albuterol sulfate HFA 90 mcg/actuati on aerosol inhaler INHALE 2 PUFFS BY MOUTH EVERY 4 HOURS NEEDED 11/01 completed Not Available Not Available Not Available dicyclomine 10 mg capsule TK 1 C PO TID PRF ABD PAIN 11/10 completed Not Available Not Available Not Available amoxicillin 875 mg-potassiu m clavulanate 125 mg tablet TAKE 1 TABLET BY MOUTH EVERY 12 HOURS 09/19 completed Not Available Not Available Not Available neomycin-po lymyxin-hyd rocort 3.5 mg-10,000 unit/mL-1 % ear drops,susp INT 4 GTS IN AU BID FOR 10 DAYS 11/10 completed Not Available Not Available Not Available NuvaRing 0.12 mg-0.015 mg/24 hr vaginal INSERT 1 RING(S) VAGINALLY EVERY MONTH 11/10 completed Not Available Not Available Not Available Vitamin 01/22 completed Not Available Not Available Not Available ID NOW COVID-19 Test Kit TEST DIRECTED TODAY 09/19 completed Not Available Not Available Not Available Vitals Date Recorded Body height Body mass index (BMI) Body weight Systolic blood pressure Diastolic blood pressure Provider Name and Address Organization Details Last Updated DateTime 04/16/2023 170.18 cm 37.9 kg/m2 547713.3 5354 g 123 mm[Hg] 76 mm[Hg] Mora Korycatrachita [facility] 3 17:35:52 Date Recorded Body height Body mass index (BMI) Body weight Systolic blood pressure Diastolic blood pressure Provider Name and Address Organization Details Last Updated DateTime 04/26/2023 170.18 cm 35.9 kg/m2 444543.6 5 g 135 mm[Hg] 83 mm[Hg] [facility] 3 15:22:27 Date Recorded Body height Body mass index (BMI) Body weight Systolic blood pressure Diastolic blood pressure Provider Name and Address Organization Details Last Updated DateTime 05/21/2023 170.18 cm 34.1 kg/m2 10667.42 g 118 mm[Hg] 77 mm[Hg] [facility] 3 14:06:03 Date Recorded Body height Body mass index (BMI) Body weight Systolic blood pressure Diastolic blood pressure Provider Name and Address Organization Details Last Updated DateTime 01/23/2024 170.18 cm 32.3 kg/m2 84423.03 g 123 mm[Hg] 75 mm[Hg] Chelsea Ansari [facility] 4 16:38:27 Social History Question Answer Notes LastModified by Organizat ion Details LastModified Time Tobacco Smoking Status Never [email or web address] 11/01/2022 17:18:12 What Is Your Level Of Alcohol Consumption? Moderate Information not available 11/01/2022 If You Are , What Was Your Level Of Alcohol Consumption Prior To ? Occasional Information not available 11/01/2022 How Many Years Have You Consumed Alcohol? 6 Information not available 11/01/2022 Are You Blind Or Do You Have Difficulty Seeing? No Information n ot available 11/10/2021 What Is Your Level Of Caffeine Consumption? Occasional [email or web address] Information not available 09/19/2022 How Much Tobacco Do You Chew? None Information not available 09/19/2022 In The 14 Days Before Symptom Onset, Have You Had Close Contact With A Laboratory-confirm ed COVID-19 While That Case Was Ill? No [email or web address] Information n ot available 09/19/2022 In The 14 Days Before Symptom Onset, Have You Had Close Contact With A Person Who Is Under Investigation For COVID-19 While That Person Was Ill? No Information not available 09/19/2022 Have You Been To An Area Known To Be High Risk For COVID-19? No [email or web address] Information not available 09/19/2022 Are You Deaf Or Do You Have Serious Difficulty Hearing? No Information not available 11/10/2021 What Type Of Diet Are You Following? REGULAR Information n ot available 11/10/2021 What Is The Highest Grade Or Level Of School You Have Completed Or The Highest Degree You Have Received? [id number] [email or web address] Information not available 09/19/2022 What Is Your Occupation? [employer] [email or web address] Information not available 09/19/2022 Are There Any Guns Present In Your Home? Yes Information not available 11/01/2022 Have You Ever Been Counseled For Unhealthy Alcohol Use? No [email or web address] Information not available 03/26/2023 Do You Use Protection During Sex? No [email or web address] Information not available 09/19/2022 Do You Use Your Seat Belt Or Car Seat Routinely? Yes [email or web address] Information not available 09/19/2022 Do You Have Smoke And Carbon Monoxide Detectors In Your Home? Yes [email or web address] Information not available 09/19/2022 How Much Tobacco Do You Smoke? No [email or web address] Information not available 09/19/2022 Do You Feel Stressed (tense, Restless, Nervous, Or Anxious, Or Unable To Sleep At Night)? [id number] Information not available 11/01/2022 Do You Use Any Illicit Or Recreational Drugs? No [email or web address] Information not available 09/19/2022 Do You Use Sunscreen Routinely? Yes [email or web address] Information not available 09/19/2022 Have You Used IV Drugs? No [email or web address] Information not available 09/19/2022 Sex: Unknown Functional Status Question Answer Note LastModified by Organizat ion Details LastModified Time Do you have difficulty walking or climbing stairs? No Information not available 11/01/2022 Are you able to walk? [email or web address] Information not available 11/10/2021 Are you able to care for yourself? Yes Information not available 11/01/2022 Do you have difficulty dressing or bathing? No Information not available 11/01/2022 What is your exercise level? Moderate Information not available 11/01/2022 Mental Status None recorded. Family History Relationship Description Onset Age of this Age Resolved Age Notes LastModified by Organization Details LastModified Time Mother Disorder of thyroid gland Not available 09/19 17:19:13 Father Anxiety disorder [email or web address] Not available 09/19 17:19:13 Father Depressive disorder [email or web address] Not available 09/19 17:19:13 Notes:Mother: No history of Cancer, cervical Medical History Condition Response Allergies (Food, seasonal, environmental ) Y Other N Breast Cancer N Drug/Latex Allergies/Reactions N Blood Transfusion N Dermatologic Disorders N Lung Disease N Defects or Inherited Disease N Breast Problem N Gestational Diabetes N Hematologic disorders N Anesthesia Complications N History of STI N Deep Vein Thrombosis N Polycystic ovary syndrome Y Anxiety Disorder Y Autoimmune disease N Arthritis N Infertility N Polyps N Acid Reflux (GERD) N History of abnormal pap N Cancer N Stroke N Varicosities N Neurologic/Epilepsy N Endometriosis Y High Cholesterol N Headaches N Fibromyalgia N Kidney Disease N Heart Problems N Kidney or Bladder Problems N Thyroid Problems N GI Problems N Eating Disorder N Anemia N Art (IVF or FET) N Psychiatric Illness N Ovarian Cancer N Diabetes N Pulmonary (TB, Asthma) N Hepatitis/Liver Disease N No Past Medical History N Eczema N Urinary Tract Infection N Abuse/Domestic Violence N Asthma Y Trauma/Violence N Depression/ depression Y Heart Disease N Pre-Eclampsia N Hypertension N Osteoporosis N Thrombophilias N Gynecological History Statement/Question Response Flow Moderate Date of LMP 01/22/2024 On BCP's at Conception? N N Was last menstrual period normal Y STIs/STDs N HPV Vaccine Y Duration of Flow (days) 4 Current Control Method Withdrawal Frequency of Cycle (Q days) 3 Sexually Active? Y Menses Monthly Y Age of first menstrual cycle 12 Date of Last Pap Smear 11/10/2021 Sexual Problems? N Desired Control Method None LMP Approximate N Obstetrics History GPAL:G 1 P 1 0 0 1 Type Value Full Term 1 Living 1 Total 1 Past Encounters Encounter ID Performer Location Encounter Start Date Encounter Closed Date Diagnosis/Indication Diagnosis SNOMED-CT Code Diagnosis ICD10 Code Diagnosis Note [id number] Inge Boateng [facility] [address] [address] 05/24/2020 17:43:43 05/25/2020 18:25:02 Gynecologic examination 37753367 Z01.419 Take Calcium with Vitamin D 1200mg daily if not receiving in daily diet. It is strongly advised to have an annual flu shot and up can obtain at most pharmacies . If you have not had a TDap shot in the last 10 years you should obtain one as well. Discussed with patient & provided with informatio n regarding Gardisil vaccine to prevent the 4 strains for HPV that cause cervical cancer if under age 26. Encourage safe sexual practices, to use condoms and limit partners if not already in a monogamous relationsh ip. Do monthly self breast exams. Have mammogram yearly or every other year depending on family history. BRCA testing is now available for patients with strong genetic history of female cancer. If interested contact the office. Engage in daily exercise of low impact aerobic exercise 45-60 minutes 4-5 times weekly. Avoid tobacco and illicit drugs as well as using moderation with alcohol intake less than 1-2 8 oz beverages daily. This lifestyle behavior pattern will lead to less health conditions and longer life span. If BMI greater than 25 weight watchers or dietary consult advised. Patient received above instructio ns, and questions have been answered. If you have any questions please call or respond to this email. Patient was made aware of the patient portal and may obtain a paper copy of today's plan if desired. Pain in pelvis 32558701 R10.2 Pt has been evaluated and endometrio sis is suspected however cycles are not painful at all. PCP feels that pt has pcos but her cycles are regular and no other s/s of pcos. Descriptio n by patient sounds likely that she will have occasional cysts rupture. Pt does not feel that it is any worse. Pt would like to restart nuvaring as contracept ion is important to her at this time. I will have her return in 3 months to evaluate to see if pain is improved or worse. Contracept ion care management 258532740 Z30.9 Discussed all control options in great detail. Pt would like to start nuvaring. She is aware of the risks and benefits. She does not have any medical condition that is contraindi cated with the use of estrogen containing control. Pt will place the nuvaring on the first sunday following the start of her period. She is aware it is not effective for control the first month. She is also aware of the importance of timely insertion and removal. Encouraged use of condoms as the nuvaring does not protect against STD's. Will return in 3 months for med check. Consent was read and signed. Pt verbalized understand ing. [id number] TITUS Aragon Tell [address] [address] 11/10/2021 15:27:36 11/10/2021 17:35:56 Gynecologic examination 80420658 Z01.419 Take Calcium with Vitamin D 1200mg daily if not receiving in daily diet. It is strongly advised to have an annual flu shot and up can obtain at most pharmacies . If you have not had a TDap shot in the last 10 years you should obtain one as well. Discussed with patient & provided with informatio n regarding Gardisil vaccine to prevent the 4 strains for HPV that cause cervical cancer if under age 26. Encourage safe sexual practices, to use condoms and limit partners if not already in a monogamous relationsh ip. Do monthly self breast exams. Have mammogram yearly or every other year depending on family history. BRCA testing is now available for patients with strong genetic history of female cancer. If interested contact the office. Engage in daily exercise of low impact aerobic exercise 45-60 minutes 4-5 times weekly. Avoid tobacco and illicit drugs as well as using moderation with alcohol intake less than 1-2 8 oz beverages daily. This lifestyle behavior pattern will lead to less health conditions and longer life span. If BMI greater than 25 weight watchers or dietary consult advised. Patient received above instructio ns, and questions have been answered. If you have any questions please call or respond to this email. Patient was made aware of the patient portal and may obtain a paper copy of today's plan if desired.Mandy cisneros has normal monthly menses.She has been having pelvic cramping 1-2x per week for years. Cramping will come and last a few minutes. Not interferin g with her daily life, no medication s needed. Was told she could have endometrio sis before. We discussed pelvic US. We also discussed consult with Dr. Hardy for chronic pelvic pain, discussed only way to diagnosis endometros is is through an explorator y lap. She would like to hold off on consult for now. Will call the office if she changes her mind. She will get the pelvic US and f/u for an appointmen t with the results.Is currently considerin g , using condoms for now, has been off nuvaring x 1 year. Encouraged daily vitamin starting now.Chris crisostomo has constipati on, bowel movements every 2-3 days. Has never seen GI about this. Referral sent. Can use OTC stool softners, miralax.Mandy cisneros is going to schedule with her PCP for routine lab work.Hx of abnormal pap (HPV) in 2014, normals sincePap done todayDecli harman STI testingRTC for pelvic US Pain in pelvis 50231281 R10.2 Constipation 81189366 K5 9.00 [id number] Bruna Garcia [facility] [address] [address] 09/19/2022 16:27:35 09/19/2022 17:35:49 [id number] Inge Boateng [facility] [address] [address] 09/19/2022 16:27:58 09/19/2022 18:17:33 Amenorrhea 41577080 N91.2 Venereal d isease screening 334768250 Z11.3 test positive 681275339 Z32.01 Risk factors addressed: Tobacco Cessation, Safe Sexual Practices, environmen sybil, work hazards, travel restrictio ns, seat belt use.Eat a health well balanced diet, avoid alcohol, tobacco, and street drugs.Enga ge in daily low impact exercise, avoid temperatur e extremes, and cat, rodent, and bird feces.Avoi d travel to areas where zika virus is a concern.Of fered cf/sma/nip t. Declines at this time. Handouts given and discussed with patient.Ch ildbirth classes recommende d.New OB sheet given.If previous , counseling .Pt verbalizes that she understand s the importance of above instructio ns.All questions were answered.P atient reminded to have annual well woman examinatio n and address [facility] . [id number] Jazmin Leonora [facility] [address],[place] [address] 11/01/2022 16:30:32 11/01/2022 17:09:13 with uncertain dates 277928100 Z3A.14 [id number] Cyrus Hardy MD [facility] [address],[place] [address] 11/01/2022 16:30:58 11/01/2022 18:18:43 Routine care 226137445 Z34.92 [id number] Salena Luis [facility] [address],[place] [address] 11/30/2022 16:00:00 11/30/2022 17:34:30 screening for malformation 211802788 Z36.3 [id number] [facility] [address] [address] 11/30/2022 16:00:23 11/30/2022 17:42:48 Routine care 289531450 Z34.82 [id number] Elizabeth Zapata MD [facility] [address],[place] [address] 12/29/2022 14:59:28 12/29/2022 16:27:22 Routine care 256276854 Z34.02 History of SARS-CoV-2 29 18601806 99456002 Z86.16 [id number] Bruna Garcia [facility] [address] [address] 12/29/2022 14:59:43 12/29/2022 15:38:13 Pre-existing maternal disease complicating 1369613110 6106 O99.891 U07.1 Z86.16 Z3A.23 [id number] Cyrus Hardy MD [facility] [address],[place] [address] 01/25/2023 14:30:34 01/25/2023 15:17:14 Routine care 148130898 Z34.92 [id number] Cyrus Hardy MD [facility] [address],[place] [address] 02/08/2023 17:28:50 02/09/2023 14:52:11 Routine care 728763834 Z34.92 [id number] [facility] [address] [address] 02/12/2023 17:19:49 02/12/2023 17:57:59 History of SARS-CoV-2 3384311558 85954260 Z86.16 [id number] Elizabeth Zapata MD [facility] [address],[place] [address] 02/19/2023 16:03:06 02/21/2023 09:45:34 Routine care 378009467 Z34.02 [id number] Elizabeth Zapata MD [facility] [address],[place] [address] 03/05/2023 16:16:14 03/05/2023 16:57:38 Routine care 171907843 Z34.02 Reduced fe sybil movement 995760323 O36.8199 [id number] Lisa Arreola [facility] [address],[place] [address] 03/05/2023 16:39:49 03/05/2023 17:09:20 Reduced movement 148015451 O36.8199 [id number] Bruna Garcia [facility] [address],[place] [address] 03/19/2023 17:31:51 03/20/2023 10:38:08 History of SARS-CoV-2 2388261069 22736744 U07.1 Z86.16 Z3A.34 [id number] Elizabeth Zapata MD [facility] [address],[place] [address] 03/19/2023 17:32:24 03/20/2023 10:38:18 Breech presentation 1913833 O32.1XX9 Routine an tenatal care 826113770 Z34.02 [id number] Elizabeth Zapata MD [facility] [address],[place] [address] 03/26/2023 16:16:45 03/27/2023 10:04:10 Routine care 275298131 Z34.02 Breech presentation 6096 002 O32.1XX9 [id number] Elizabeth Zapata MD [facility] [address],[place] [address] 04/04/2023 15:44:09 04/06/2023 15:15:02 Routine care 056086614 Z34.02 Breech presentation 6096 002 O32.1XX9 [id number] Salena Luis [facility] [address],[place] [address] 04/10/2023 15:59:36 04/10/2023 17:01:58 condition affecting obstetrical care of mother 579241977 O35.3XX0 O32.1XX0 O36.63X0 Z3A.37 [id number] Elizabeth Zapata MD [facility] [address],[place] [address] 04/10/2023 16:00:15 04/11/2023 14:35:58 Breech presentation 5978659 O32.1XX9 Routine an tenatal care 924587332 Z34.02 [id number] Elizabeth Zapata MD [facility] [address],[place] [address] 04/16/2023 17:31:31 04/18/2023 14:39:24 Breech presentation 2910855 O32.1XX9 Routine an tenatal care 160851500 Z34.02 [id number] April Gore [facility] [address],[place] [address] 04/23/2023 10:07:33 04/23/2023 10:09:47 Breech presentation 2614331 O32.1XX9 [id number] FERNANDO ARMENTA MD [facility] [address],[place] [address] 04/26/2023 15:15:05 04/26/2023 18:00:51 state 57448120 Z39.2 - s/p C section 06/20/23- incision well healed, ok to remove steri strips as needed- return to clinic in 4-5 weeks for visit- return precaution s discussed [id number] FERNANDO ARMENTA MD [facility] [address],[place] [address] 05/21/2023 13:50:05 05/21/2023 15:21:18 care 006249576 Z39.2 S/p PLTCS 4 weeks ago here today for a visit.1. Patient recovering well2. Plans to continue breastfeed ing3. Not interested in contracept ion at this time. Risks, benefits, and alternativ es reviewed with the patient4. Patient instructed to follow up in 1 year for well woman exam unless need arises prior [id number] TITUS Aragon [facility] [address],[place] [address] 01/23/2024 16:27:13 01/23/2024 17:01:11 Gynecologic examination 18201949 Z01.419 WWEBC - declinedpa p due 2024declin ed STI screen It is strongly advised to have an annual flu shot and up can obtain at most pharmacies . If you have not had a TDap shot in the last 10 years you should obtain one as well. Discussed with patient & provided with informatio n regarding HPV vaccine if applicable . Encourage safe sexual practices, to use condoms and limit partners if not already in a monogamous relationsh ip. Do monthly self breast exams. BRCA testing is now available for patients with strong genetic history of female cancer. If interested contact the office. Engage in regular exercise. Avoid tobacco and illicit drugs. This lifestyle behavior pattern will lead to less health conditions and longer life span. If BMI greater than 25 dietary consult advised. Patient received above instructio ns, and questions have been answered. If you have any questions please call or respond to this email. Patient was made aware of the patient portal and may obtain a paper copy of today's plan if desired. Health Concerns Section Related Observation LastModified by Organization Detai ls LastModified Time None Recorded Concern Status LastModified by Organization Details LastModified Time None Recorded Advance Directives Directive None Recorded Payers Encounter Date Sequence Insurance Name Policy Number Policy Pearson Covered Member ID Pearson Member ID Guarantor Name 04/16/2023 1 [place] [id number] Ivelisse Gao [id number] Ivelisse Gao 04/20/2023 1 [place] [id number] Ivelisse Gao [id number] Ivelisse Gao 04/26/2023 1 [place] [id number] Ivelisse Sima [id number] Ivelisse Gao 05/21/2023 1 [place] [id number] Ivelisse Gao [id number] Ivelisse Gao 01/23/2024 1 [place] [id number] Ivelisse Gao [id number] Ivelisse Gao Notes Date Note Type Note Provider Name and Address Organization Details Recorded Time 04/26/2023 text/html s/p C/S 04/20/23. She presents today for her incision check. Her postop course has been unremarkable. She has minimal spotting, denies pain, fever or any other concerning symptoms. Off of narcotics for pain management. She is and pumping, and her baby is doing well. Her mood is good. FERNANDO ARMENTA MD [address], [place], [address], [facility] 04/26/2023 17:55:30 05/21/2023 text/html S/P PLTCS on 03/31 09/21 for breech presentation. Patient denies any specific problems since delivery. Patient overall feeling well. Patient is without problems. No bleeding. Bowel and bladder function are normal. Pap due 10/2024. Denies any signs or symptoms of depression. Is coping with parenting well. Patient has not been sexually active since delivery. Patient is not interested in contraception at this time. Discussed risks of short interval FERNANDO ARMENTA MD [address], [place], [address], [facility] 05/21/2023 15:06:35 01/23/2024 text/html Annual GYNReport ed bypatient.Menstrual cycle:Normal menses Urinary symptoms:No hematuria; No incontinence Vulva:No genital lesion Vagina:Normal vaginal discharge Breast:No breast pain; No breast lump; No nipple discharge Current Contraception:withdr awal Sexual complaints:No sexual complaints; No pain during intercourse; Normal libido Menopausal Symptoms:No menopausal symptoms; Normal vaginal lubrication Psychological symptoms:No depression; No anxiety; No PMDD Preventive measures:Encourage self breast examination; Encourage regular exercise; Encourage no tobacco use; Encourage regular mammograms starting age 39Notes:28yo [id number]/p c/s 04/20/2023 - formula feedingWWEBC - withdrawallast pap 10/2021 : [id number], 2019, 2018 : all normalmonthly periods TITUS Aragon [address], [place], [address], [facility] 01/23/2024 17:00:11 OBGyn Episode Ob Episode Information Episode Created Date Number of Fetuses Patient Bloodtype Patient rh Status Prepregnancy Weight lbs Domestic Partner Domestic Partner Phone Father Name [employer] Teacher Status 11/02/19 23 1 B Positive 189 CLOSED Fetus Data First Name Last Name Admitted to NICU Weight (g) Sex Living Outcome Pediatric Complications Fetus ID Race Codes Race Delivery Type 3742.13 4 M true Full Term [id number] Primary Problems Problem Notes pt. declines cf/sma/niptBREE CH at 38w Problem Name Start Date End Date Resolution Snomed Code Not e History of SARS-CoV-2 12/29/2022 [id number] [id number] ASA & serial growth Breech presentation 03/27/2023 [id number] Lito Calculation Initial Lito Date Initial Exam Date Initial Exam Provider Initial Ultrasound Date Last Menstrual Period Date Ultra Sound Weeks Gestation 04/26/2023 11/01/2022 09/19/2022 8 Eighteen To Twenty Week Lito Update Ultra Sound Date Fundal Height At Umbil Quickening Date Ultra Sound Latest Weeks Gestation Final Lito Confirmed By Final Lito Confirmed Date Final Lito Date Ultra Sound Latest Days Gestation 0 [email or web address] 11/01/2022 04/26/20 23 0 Pre-michelle Flowsheet Flowsheet Date 11/01/2022 Pineda Score Blood Edema Fundus Height Fundus Units Glucose Ketones Leukocytes Nitrite Labor Signs Protein Cervic Dilation Cervic Effacement Cervic Station 14 Type Weight in lbs Pre/Post Dialysis Refused Weight 191.508198097924 BP Diastolic BP Location Tested BP Systolic BP Type 74 R arm 127 sitting Fetus Heart Rate Present A 157 Fetus Movement Comments This patient is a 27-year-ol d 1 at 14 weeks gestation. She presents for initial care. She has no complaints. We talked about baby aspirin for COVID exposure. Talked about vaccinations. She is not vaccinated for COVID. but, has been exposed 3 times. Talked about care in detail. She will begin routine care. She did not want genetic screening. She will likely do alpha fetoprotein. Flowsheet Date 11/30/2022 Pineda Score Blood Edema Fundus Height Fundus Units Glucose Ketones Leukocytes Nitrite Labor Signs Protein Cervic Dilation Cervic Effacement Cervic Station Type Weight in lbs Pre/Post Dialysis Refused BP Diastolic BP Location Tested BP Systolic BP Type Fetus Heart Rate Present Fetus Movement Comments Flowsheet Date 11/30/2022 Pineda Score Blood Edema Fundus Height Fundus Units Glucose Ketones Leukocytes Nitrite Labor Signs Protein Cervic Dilation Cervic Effacement Cervic Station neg none none trace Type Weight in lbs Pre/Post Dialysis Refused Weight 198.299090358008 BP Diastolic BP Location Tested BP Systolic BP Type 70 130 Fetus Heart Rate Present Fetus Movement A Yes Comments patient is having nausea and vomiting. anatomy complete, hx covid, plan growth us, disc classes, pedi, education and precautions reviewed, going to a wedding by airplane, disc precautions, increase hydration at elevation f/u here in 4 weeks Flowsheet Date 12/29/2022 Pineda Score Blood Edema Fundus Height Fundus Units Glucose Ketones Leukocytes Nitrite Labor Signs Protein Cervic Dilation Cervic Effacement Cervic Station Type Weight in lbs Pre/Post Dialysis Refused BP Diastolic BP Location Tested BP Systolic BP Type Fetus Heart Rate Present Fetus Movement Comments Flowsheet Date 12/29/2022 Pineda Score Blood Edema Fundus Height Fundus Units Glucose Ketones Leukocytes Nitrite Labor Signs Protein Cervic Dilation Cervic Effacement Cervic Station none Type Weight in lbs Pre/Post Dialysis Refused Weight 205.020668921710 BP Diastolic BP Location Tested BP Systolic BP Type 70 128 Fetus Heart Rate Present A 155 Fetus Movement A Yes Comments Doing well. US 81%- both Joe antha and FOB were LGA babies. Will follow growth for h.o COVID. N/V improved vastly- thinks it was from allergy sinus drainage. GCT next. Discuss Tdap next. Flowsheet Date 01/25/2023 Pineda Score Blood Edema Fundus Height Fundus Units Glucose Ketones Leukocytes Nitrite Labor Signs Protein Cervic Dilation Cervic Effacement Cervic Station 27 none trace Type Weight in lbs Pre/Post Dialysis Refused Weight 216.575804320968 BP Diastolic BP Location Tested BP Systolic BP Type 82 R arm 125 sitting Fetus Heart Rate Present A 135 Fetus Movement Comments Patient has some swelling in her feet, otherwise she has no complaints, good movement, no problems, routine care Flowsheet Date 02/08/2023 Pineda Score Blood Edema Fundus Height Fundus Units Glucose Ketones Leukocytes Nitrite Labor Signs Protein Cervic Dilation Cervic Effacement Cervic Station 29 none trace Type Weight in lbs Pre/Post Dialysis Refused Weight 220.329267352636 BP Diastolic BP Location Tested BP Systolic BP Type 76 R arm 123 sitting Fetus Heart Rate Present A 144 Fetus Movement Comments no complaints, no problems, growth ultrasound needs to be scheduled for next available spot, secondary to COVID Flowsheet Date 02/12/2023 Pineda Score Blood Edema Fundus Height Fundus Units Glucose Ketones Leukocytes Nitrite Labor Signs Protein Cervic Dilation Cervic Effacement Cervic Station Type Weight in lbs Pre/Post Dialysis Refused BP Diastolic BP Location Tested BP Systolic BP Type Fetus Heart Rate Present Fetus Movement Comments Flowsheet Date 02/19/2023 Pineda Score Blood Edema Fundus Height Fundus Units Glucose Ketones Leukocytes Nitrite Labor Signs Protein Cervic Dilation Cervic Effacement Cervic Station Type Weight in lbs Pre/Post Dialysis Refused BP Diastolic BP Location Tested BP Systolic BP Type Fetus Heart Rate Present Fetus Movement Comments Flowsheet Date 02/19/2023 Pineda Score Blood Edema Fundus Height Fundus Units Glucose Ketones Leukocytes Nitrite Labor Signs Protein Cervic Dilation Cervic Effacement Cervic Station neg none none trace Type Weight in lbs Pre/Post Dialysis Refused Weight 222.06905492170 BP Diastolic BP Location Tested BP Systolic BP Type 76 120 Fetus Heart Rate Present A 140 Fetus Movement A Yes Comments Diong fine. US 02/12 77% and breech. GCT wnl. Discussed and encouraged Tdap. Flowsheet Date 03/05/2023 Pineda Score Blood Edema Fundus Height Fundus Units Glucose Ketones Leukocytes Nitrite Labor Signs Protein Cervic Dilation Cervic Effacement Cervic Station neg trace 33 none trace Type Weight in lbs Pre/Post Dialysis Refused Weight 227.406620252412 BP Diastolic BP Location Tested BP Systolic BP Type 79 129 Fetus Heart Rate Present A 140 Fetus Movement A Decreased Comments Doing well except smaller mo vements the last week. NST reactive. Feels vertex now, may be the change in movement. Will do kick counts. Growth Us next. Will do Tdap soon. Flowsheet Date 03/05/2023 Pineda Score Blood Edema Fundus Height Fundus Units Glucose Ketones Leukocytes Nitrite Labor Signs Protein Cervic Dilation Cervic Effacement Cervic Station Type Weight in lbs Pre/Post Dialysis Refused BP Diastolic BP Location Tested BP Systolic BP Type Fetus Heart Rate Present Fetus Movement Comments Flowsheet Date 03/19/2023 Pineda Score Blood Edema Fundus Height Fundus Units Glucose Ketones Leukocytes Nitrite Labor Signs Protein Cervic Dilation Cervic Effacement Cervic Station Type Weight in lbs Pre/Post Dialysis Refused BP Diastolic BP Location Tested BP Systolic BP Type Fetus Heart Rate Present Fetus Movement Comments Flowsheet Date 03/19/2023 Pineda Score Blood Edema Fundus Height Fundus Units Glucose Ketones Leukocytes Nitrite Labor Signs Protein Cervic Dilation Cervic Effacement Cervic Station neg none 36 none trace Type Weight in lbs Pre/Post Dialysis Refused Weight 232.33258141956 BP Diastolic BP Location Tested BP Systolic BP Type 75 117 Fetus Heart Rate Present A 140 Fetus Movement A Yes Comments Doing ok. Tdap done. GBS nex t week, discussed. ON US today EFW 79%, but HC 99% and still breech. Discussed ECV vs CS in depth including RB of both. I recommend CS given primiparity, size of baby, likelihood of success of ECV and vaginal delivery. She is amenable. Will schedule. Will add US for growth and presentation in 3-4w. All questions answered. Discuss CS details next visit. Flowsheet Date 03/26/2023 Pineda Score Blood Edema Fundus Height Fundus Units Glucose Ketones Leukocytes Nitrite Labor Signs Protein Cervic Dilation Cervic Effacement Cervic Station neg none 36 none trace Type Weight in lbs Pre/Post Dialysis Refused Weight 233.139818371252 BP Diastolic BP Location Tested BP Systolic BP Type 77 123 Fetus Heart Rate Present A 140 Fetus Movement A Yes Comments Doing ok. NO labor sx. US ne xt week to confirm presentation. Discussed CS in detail, questions answered. GBS next week. Flowsheet Date 04/04/2023 Pineda Score Blood Edema Fundus Height Fundus Units Glucose Ketones Leukocytes Nitrite Labor Signs Protein Cervic Dilation Cervic Effacement Cervic Station neg trace 39 none trace Type Weight in lbs Pre/Post Dialysis Refused Weight 236.365743165793 BP Diastolic BP Location Tested BP Systolic BP Type 77 119 Fetus Heart Rate Present A 140 Fetus Movement A Yes Comments Doing well, feeling ok. Susp ect still breech. US next week to confirm. CS scheduled. GBS done. Declined cervical exam. Flowsheet Date 04/10/2023 Pineda Score Blood Edema Fundus Height Fundus Units Glucose Ketones Leukocytes Nitrite Labor Signs Protein Cervic Dilation Cervic Effacement Cervic Station Type Weight in lbs Pre/Post Dialysis Refused BP Diastolic BP Location Tested BP Systolic BP Type Fetus Heart Rate Present Fetus Movement Comments Flowsheet Date 04/10/2023 Pineda Score Blood Edema Fundus Height Fundus Units Glucose Ketones Leukocytes Nitrite Labor Signs Protein Cervic Dilation Cervic Effacement Cervic Station neg trace none trace Type Weight in lbs Pre/Post Dialysis Refused Weight 240.953051000166 BP Diastolic BP Location Tested BP Systolic BP Type 77 117 Fetus Heart Rate Present A 135 Fetus Movement A Yes Comments Doing fine. Uncomfortable. U S today 86%, still breech. CS next week. GBS neg. Precautions given. Flowsheet Date 04/16/2023 Pineda Score Blood Edema Fundus Height Fundus Units Glucose Ketones Leukocytes Nitrite Labor Signs Protein Cervic Dilation Cervic Effacement Cervic Station trace 41 Type Weight in lbs Pre/Post Dialysis Refused Weight 242.852568227919 BP Diastolic BP Location Tested BP Systolic BP Type 76 123 Fetus Heart Rate Present A 145 Fetus Movement Comments DOing fine. CS Sunday, discu ssed RBA, consented. Questions answered. Flowsheet Date 04/20/2023 Pineda Score Blood Edema Fundus Height Fundus Units Glucose Ketones Leukocytes Nitrite Labor Signs Protein Cervic Dilation Cervic Effacement Cervic Station Type Weight in lbs Pre/Post Dialysis Refused BP Diastolic BP Location Tested BP Systolic BP Type Fetus Heart Rate Present Fetus Movement Comments Menstrual History Last Menstrual Date Menses Monthly On Bcp Conception Prior Menses Frequency Hcg Plus Date Menarche Onset Age Genetic Screening And Infection History Question Response Note Mental Retardation/Autism false Patient's Age Will Be 35 Years Or Older At Estim ated Date of Delivery false Thalassemia (Pashto, Latvian, Mediterranean, Or Background): MCV < 80 false Neural Tube Defect (Meningomyelocele, Spina Bifi da, Or Anencephaly) false Congenital Heart Defect false Down Syndrome false Doron-Sachs (eg, Temple, Cajun, Indonesian-Selma) f alse Alphonse Disease false Sickle Cell Disease Or Trait () false Hemophilia Or Other Blood Disorders false Muscular Dystrophy false Cystic Fibrosis false Leslie's Chorea false Intellectual Disability/Autism false If Yes, Was Person Tested For Fragile X? false Other Inherited Genetic Or Chromosomal Disorder false Maternal Metabolic Disorder (eg, Type 1 Diabetes , PKU) false Patient Or Baby's Father Had A Child With Defects Not Listed Above false Recurrent Loss, Or A Stillbirth false Medications (including Suppl ements, Vitamins, Herbs, OTC Drugs), Illicit/Recreational Drugs, Alcohol false If Yes, Agent(s) And Strength/Dosage false Any Other Genetic History false Live With Someone With TB Or Exposed To TB false Patient Or Partner Has History Of Genital Herpes false Rash Or Viral Illness Since Last Menstrual Perio d false History Of STD, Gonorrhea, Chlamydia, HPV, Syphi lis false Other Infection History false History of HIV false History of Hepatitis false Prior GBS-infected child false Hemoglobinopathy Or Carrier false Other Structural Defect false Recent Travel History Outside of Country false Delivery Information Delivery Date Delivery Type Labor Anesthesia Weeks Gestation Incision Type Labor Labor Length Hrs Delivered By Post Complications Tubal Sterilization Discharge Date Comments 3 None [facility] 39.1 Low Transvers e false Elizabeth Zapata MD Breech presentat ion, History of SARS-CoV- 2 Discharge Information Feeding Method Contraceptive Method Maternal HG B and HCT Levels
[2024-09-04 11:29] LABS: EDSTREPNEGPOS1 Negative (Negative)
[2024-09-04 11:35] LABS: BEDSIDEPREGUCG Negative (Negative); EDCOVIDSCREEN Negative (Negative); EDINFLUASCREEN Negative (Negative); EDINFLUBSCREEN Negative (Negative)
== END 2024-09-04 12:00 | disposition home or self-care (01) ==
PROVIDERS: Emergency Provider Nurse Practitioner Family; PCP Family Medicine
DX: J06.9 Acute upper respiratory infection, unspecified (principal); H01.021 Squamous blepharitis right upper eyelid; Z20.822 Contact with and (suspected) exposure to COVID-19
CPT/HCPCS: 81025; 87081; 87426; 87804; 87880; 99213; G0463

== ENCOUNTER 2024-09-11 09:15 | Outpatient (CLI) | payer OTHER, SELFPAY ==
--- NOTE | ~2024-09-11 | XR_ITS ---
EXAMINATION: XR chest 2V DATE: 09/11/2024 09:32 INDICATION: Cough. TECHNIQUE: Frontal and lateral views of the chest were obtained. COMPARISON: None. FINDINGS: There is no pneumonia, pleural effusion, or pneumothorax. The heart size is normal. IMPRESSION: 1. No acute cardiopulmonary disease. Reviewed, dictated and finalized at location A. DESK TEAM LEADER
--- OUTSIDE RECORDS SUMMARY | 2024-09-11 09:35 | XMS_ITS | Clinical Summary ---
Author Organization [facility] Address [address] [place] [id number] Care Team Providers Care Rent And Miscellaneous Remittance Clerk Name Role Phone Fredi Hankins MD Primary Care Provider [phone] Allergies Active Allergy Reactions Criticality Noted Date Comments Agave Other (see comment) 07/07/2024 Flu like symptoms Encounters Date Type Department Care Team Description 07/07/2024 11:00 AM ROLL OFF DRIVER Office Visit [facility] [address] [place] [address] Alayna Hidalgo NP Physical 07/07/2024 9:59 AM ROLL OFF DRIVER - 07/07/2024 11:59 PM ROLL OFF DRIVER Hospital Encounter [facility] [address] [address] Alayna Hidalgo NP Discharge Disposition: Home or [...] on file Legal Sex Female 3:51 PM ROLL OFF DRIVER Gender Identity Not on file Sexual Orientation Not on file Last Filed Vital Signs Vital Sign Reading Time Taken Comments Blood Pressure 134/76 07/07/2024 11:28 AM ROLL OFF DRIVER Pulse 64 07/07/2024 11:28 AM ROLL OFF DRIVER Temperature 37.4 C (99.3 F) 07/07/2024 11:28 AM ROLL OFF DRIVER Respiratory Rate 18 07/07/2024 11:2 8 AM ROLL OFF DRIVER Oxygen Saturation 100% 07/07/2024 11: 28 AM ROLL OFF DRIVER Inhaled Oxygen Concentration - - Weight 91.1 kg (200 lb 12.8 oz) 024 11:28 AM ROLL OFF DRIVER Height 175.3 cm (5' 9 ) 07/07/2024 11:2 8 AM ROLL OFF DRIVER Body Mass Index 29.65 07/07/2024 11:28 AM ROLL OFF DRIVER Plan of Treatment Health Maintenance Due Date Last Done Comments Cervical Cancer Screening Pa p Smear (Age 21 to 29) Every 3 Years 1994 Cervical Cancer Screening 1994 PHQ-2 (Physician [facility] [place] [facility] [place]) 2006 Hepatitis C 2012 Hepatitis B Vaccines (1 of 3 - 19+ 3-dose series) 2013 COVID-19 Vaccine (2023-2 5 season) 2024 Influenza Adult (#1) 2024 PHQ-2 (Physician [facility] [place]) 07/30/2024 Annual Physical 07/07/2025 07/07/2024 DTaP, Tdap [...] BLOOD, QNT Routine 07/07/2024 11 :17 AM ROLL OFF DRIVER Encounter for screening LIPID PANEL Routine 07/07/2024 11:17 AM ROLL OFF DRIVER Encounter for screening from Last 3 Months Results * (ABNORMAL) LIPID PANEL (07/07/2024 11:17 AM ROLL OFF DRIVER) CHOLESTEROL 225(H) <200 MG/DL 07/09/2024 10:[address] [facility] TRIGLYCERIDES 108 <150 MG/DL 07/09/2024 10:[address] [facility] HDL 58 >40.0 MG/DL 07/09/2024 10:[address] [facility] LDL (CALCULATED) 145(H) <100 MG/DL 07/09/2024 10:[address] [facility] NON HDL CHOLESTEROL 167(H) <130 MG/DL 07/09/2024 10:[address] [facility] Comment: NOTE: WHEN THE TRIGLYCERIDES ARE >200 mg/dL, NON HDL C IS A SECONDARY TARGET OF THERAPY, WITH A GOAL 30 mg/dL HIGHER THAN THE IDENTIFIED LDL C GOAL. CHOL/HDL RATIO 3.9 0.0 - 4.5 07/09/2024 10:[address] [facility] VLDL CALCULATION 22 5 - 55 MG/DL 07/09/2024 10:[address] [facility] LIPID INTERPRETATION 07/09/2024 10:[address] [facility] Comment: [facility] REPORT RECOMMENDATIONS: ADULT CHILD LOW RISK: CHOLESTEROL <200 <170 TRIGLYCERIDE <150 --- HDL >=60 --- LDL <100 <110 BORDERLINE: CHOLESTEROL 200-239 170-199 TRIGLYCERIDE 150-199 --- HDL 40-59 --- LDL 100-159 110-129 HIGH RISK: CHOLESTEROL >=240 >=200 TRIGLYCERIDE >=200 --- HDL <40 --- LDL >=160 >=130 07/07/2024 11:1 7 AM ROLL OFF DRIVER us Alayna Hidalgo NP LABORATORY Final Result [facility] [address] [place] [address], [place] [phone] * GLUCOSE BLOOD, QNT (07/07/2024 11:17 AM ROLL OFF DRIVER) GLUCOSE 91 70 - 99 MG/DL 07/09/2024 10:18 AM ROLL OFF DRIVER [facility] 07/07/2024 11:1 7 AM ROLL OFF DRIVER us Alayna Hidalgo [employer] [facility] Final Result [facility] [address] [place] [address], from Last 3 Months Care Teams Rent And Miscellaneous Remittance Clerk Relationship Specialty Start Date End Date Fredi Hankins MD [address] [place] [address] PCP - General FAMILY PRACTICE 07/07/24
--- OUTSIDE RECORDS SUMMARY | 2024-09-11 09:36 | XMS_ITS | Data Portability ---
Author Organization [facility] Address [address] [place] [address] Care Team Providers Care Negative Restorer Name Role Phone BEST RUGGIERO Primary Care Provider Assessment Encounter Date Assessment Date Assessment LastModified by Organization Details LastModified Time 01/23/2024 01/23/2024 Annual gynecological exam performed. Patient will come back in a year unless there are new symptoms. [email or web address] Not available 01/23/2024 16:34:08 Plan of Treatment [...] w-up No observ ation record ed. [email or web address] [facility] [address], [place], [address], 03/19/2023 18:13:43 03/19/20 23 03/19/2023 US, obste tric, follo w-up No observ ation record ed. MONIQUE Rubi [address], [place], [address], 03/26/2023 10:04:48 04/10/20 23 04/10/2023 US, obste tric, follo w-up No observ ation record ed. christoph [facility] [address], [place], [address], 04/10/2023 17:21:42 04/10/20 23 04/10/2023 US, obste tric, follo w-up No observ ation record ed. MONIQUE Elicia [address], [place], [address], 05/06/2023 05:25:50 Result Notes None recorded. Problems Name Problem SNOMED Code Status Onset Date Resolution Date Notes Provider Name and Address Organization Details Recorded Time Pregnanc y 16891160 Completed 202204/26/2023 Nedarachell Duenasle [facility], [facility] 3 15:14:11 SARS-CoV -2 Completed ASA & serial growth Elizabeth Zapata MD [address], [place], [address], [facility] 3 16:24:20 History of SARS-CoV -2 27150524937 2409169 Completed 2022 ASA & serial growth Ramona Barron [facility], [facility] 3 15:14:05 History of SARS-CoV -2 06556357253 2621330 Active 2022 ASA & serial growth Nedarachell Duenasle [facility], [facility] 3 15:14:05 Breech presenta tion 9926628 Completed 2022 Nedasantiagoy Beatrice [facility], [facility] 3 15:14:05 Breech presenta tion 4193980 Active 2022 Nedasantiagoy Beatrice [facility], [facility] 3 15:14:05 Problem Notes None recorded. Procedures Surgical History Date Name Laterality Status Provider Name and Address Organization Details Recorded Time 04/20/20 23 SECTION (SURG) completed Lyudmila Evans [facility] 04/23/2023 10:38:32 11/11/19 22 Date of Last Pap Smear completed FERNANDO ARMENTA MD [address], [place], [address], [facility] 05/21/2023 14:23:44 07/30/19 08 extraction of wisdom tooth completed Harriet Hinkle [facility] 09/19/2022 17:29:38 Imaging Results Imaging Date Name Status LastModified by Organiz ation Details LastModified Time 03/19/2023 US, obstetric, follow-up completed [address], [place], [address], 03/19/2023 18:13:43 03/19/2023 US, obstetric, follow-up completed MONIQUE Rubi [address], [place], [address], 03/26/2023 10:04:48 04/10/2023 US, obstetric, follow-up completed christoph [facility] [address], [place], [address], 04/10/2023 17:21:42 04/10/2023 US, obstetric, follow-up active MONIQUE Rubi [address], [place], [address], 05/06/2023 05:25:50 Procedure Notes None recorded. Medical [...] Updated DateTime 04/16/2023 170.18 cm 37.9 kg/m2 116255.3 5354 g 123 mm[Hg] 76 mm[Hg] Mora Korycatrachita [facility] 3 17:35:52 Date Recorded Body height Body mass index (BMI) Body weight Systolic blood pressure Diastolic blood pressure Provider Name and Address Organization Details Last Updated DateTime 04/26/2023 170.18 cm 35.9 kg/m2 791157.6 5 g 135 mm[Hg] 83 mm[Hg] [facility] 3 15:22:27 Date Recorded Body height Body mass index (BMI) Body weight Systolic blood pressure Diastolic blood pressure Provider Name and Address Organization Details Last Updated DateTime 05/21/2023 170.18 cm 34.1 kg/m2 03503.42 g 118 mm[Hg] 77 mm[Hg] [facility] 3 14:06:03 Date Recorded Body height Body mass index (BMI) Body weight Systolic blood pressure Diastolic blood pressure Provider Name and Address Organization Details Last Updated DateTime 01/23/2024 170.18 cm 32.3 kg/m2 71242.03 g 123 mm[Hg] 75 mm[Hg] Chelsea Ansari [facility] 4 16:38:27 Social History Question Answer Notes LastModified by Organizat ion Details LastModified Time Tobacco Smoking Status Never Smoker [email or web address] 11/01/2022 17:18:12 What Is Your Level [...] Is Your Level Of Caffeine Consumption? Occasional [email or web address] Information not available 09/19/2022 How Much Tobacco Do You Chew? None Information not available 09/19/2022 In The 14 Days Before Symptom Onset, Have You Had Close Contact With A Laboratory-confirm ed COVID-19 While That Case Was Ill? No Information n ot available 09/19/2022 In The 14 Days Before Symptom Onset, Have You Had Close Contact With A Person Who Is Under Investigation For COVID-19 While That Person Was Ill? No [email or web address] Information not available 09/19/2022 Have You Been To An Area Known To Be High Risk For COVID-19? No [email or web address] Information not available 09/19/2022 Are You Deaf Or Do You Have Serious Difficulty Hearing? No Information not available 11/10/2021 What Type Of Diet Are You Following? REGULAR Information n ot available 11/10/2021 What Is The Highest Grade Or Level Of School You Have Completed Or The Highest Degree You Have Received? [id number] [email or web address] Information not available 09/19/2022 What Is Your Occupation? [employer] [email or web address] Information not available 09/19/2022 Are There Any Guns Present In Your Home? Yes Information not available 11/01/2022 Have You Ever Been Counseled For Unhealthy Alcohol Use? No [email or web address] Information not available 03/26/2023 Do You Use Protection During Sex? No [email or web address] Information not available 09/19/2022 Do You Use Your Seat Belt Or Car Seat Routinely? Yes [email or web address] Information not available 09/19/2022 Do You Have Smoke And Carbon Monoxide Detectors In Your Home? Yes [email or web address] Information not available 09/19/2022 How Much Tobacco Do You Smoke? No [email or web address] Information not available 09/19/2022 Do You Feel Stressed (tense, Restless, Nervous, Or Anxious, Or Unable To Sleep At Night)? [id number] Information not available 11/01/2022 Do You Use Any Illicit Or Recreational Drugs? No Information not available 09/19/2022 Do You Use Sunscreen Routinely? Yes [email or web address] Information not available 09/19/2022 Have You Used IV Drugs? No [email or web address] Information not available 09/19/2022 Sex: Unknown Functional [...] LastModified Time Mother Disorder of thyroid gland [email or web address] Not available 09/19 17:19:13 Father Anxiety disorder [email or web address] Not available 09/19 17:19:13 Father Depressive disorder [email or web address] Not available 09/19 17:19:13 Notes:Mother: No history of Cancer, cervical Medical History Condition Response Allergies (Food, seasonal, environmental ) Y Other N Blood Transfusion N Drug/Latex Allergies/Reactions N Breast Cancer N Dermatologic Disorders N Lung Disease N [...] SNOMED-CT Code Diagnosis ICD10 Code Diagnosis Note [id number] Inge Boateng [facility] [address] [address] 05/24/2020 17:43:43 05/25/2020 18:25:02 Gynecologic examination 64271254 Z01.419 Take Calcium with Vitamin D 1200mg [...] today's plan if desired. Pain in pelvis 45948713 R10.2 Pt has been evaluated and endometrio [...] improved or worse. Contracept ion care management 651661164 Z30.9 Discussed all control options in great [...] read and [place]. [place]. [id number] TITUS Aragon [facility] [address] [address] 11/10/2021 15:27:36 11/10/2021 17:35:56 Gynecologic examination 02177242 Z01.419 Take Calcium with Vitamin D 1200mg [...] testingRTC for pelvic US Pain in pelvis 08855151 R10.2 Constipation 54412036 K5 9.00 [id number] Bruna Garcia [facility] [address] [address] 09/19/2022 16:27:35 09/19/2022 17:35:49 [id number] Inge Boateng [facility] [address] [address] 09/19/2022 16:27:58 09/19/2022 18:17:33 Amenorrhea 50455714 N91.2 Venereal d isease screening 981552434 Z11.3 test positive 188940966 Z32.01 Risk factors addressed: Tobacco Cessation, Safe [...] annual well woman examinatio n and address [facility] . [id number] Jazmin Leonora [facility] [address],[place] [address] 11/01/2022 16:30:32 11/01/2022 17:09:13 with uncertain dates 849659401 Z3A.14 [id number] Cyrus Hardy MD [facility] [address],[place] [address] 11/01/2022 16:30:58 11/01/2022 18:18:43 Routine care 327747603 Z34.92 [id number] Salena Luis [facility] [address],[place] [address] 11/30/2022 16:00:00 11/30/2022 17:34:30 screening for malformation 391801115 Z36.3 [id number] [facility] [address],[place] [address] 11/30/2022 16:00:23 11/30/2022 17:42:48 Routine care 810110401 Z34.82 [id number] Elizabeth Zapata MD [facility] [address],[place] [address] 12/29/2022 14:59:28 12/29/2022 16:27:22 Routine care 971324776 Z34.02 History of SARS-CoV-2 29 05223879 34588845 Z86.16 [id number] Bruna Garcia [facility] [address],[place] [address] 12/29/2022 14:59:43 12/29/2022 15:38:13 Pre-existing maternal disease complicating 7583919001 6106 O99.891 U07.1 Z86.16 Z3A.23 [id number] Cyrus Hardy MD [facility] [address],[place] [address] 01/25/2023 14:30:34 01/25/2023 15:17:14 Routine care 066325565 Z34.92 [id number] Cyrus Hardy MD [facility] [address],[place] [address] 02/08/2023 17:28:50 02/09/2023 14:52:11 Routine care 100500413 Z34.92 [id number] [facility] [address],[place] [address] 02/12/2023 17:19:49 02/12/2023 17:57:59 History of SARS-CoV-2 8133935173 26885002 Z86.16 [id number] Elizabeth Zapata MD [facility] [address],[place] [address] 02/19/2023 16:03:06 02/21/2023 09:45:34 Routine care 740184237 Z34.02 [id number] Elizabeth Zapata MD [facility] [address],[place] [address] 03/05/2023 16:16:14 03/05/2023 16:57:38 Routine care 769632472 Z34.02 Reduced fe sybil movement 400936068 O36.8199 [id number] Lisa Arreola [facility] [address],[place] [address] 03/05/2023 16:39:49 03/05/2023 17:09:20 Reduced movement 928690122 O36.8199 [id number] Bruna Garcia [facility] [address],[place] [address] 03/19/2023 17:31:51 03/20/2023 10:38:08 History of SARS-CoV-2 4166186441 92311444 U07.1 Z86.16 Z3A.34 [id number] Elizabeth Zapata MD [facility] [address],[place] [address] 03/19/2023 17:32:24 03/20/2023 10:38:18 Breech presentation 5436998 O32.1XX9 Routine an tenatal care 014885338 Z34.02 [id number] Elizabeth Zapata MD [facility] [address],[place] [address] 03/26/2023 16:16:45 03/27/2023 10:04:10 Routine care 636457960 Z34.02 Breech presentation 6096 002 O32.1XX9 [id number] Elizabeth Zapata MD [facility] [address],[place] [address] 04/04/2023 15:44:09 04/06/2023 15:15:02 Routine care 356316320 Z34.02 Breech presentation 6096 002 O32.1XX9 [id number] Salena Luis [facility] [address],[place] [address] 04/10/2023 15:59:36 04/10/2023 17:01:58 condition affecting obstetrical care of mother 004574151 O35.3XX0 O32.1XX0 O36.63X0 Z3A.37 [id number] Elizabeth Zapata MD [facility] [address],[place] [address] 04/10/2023 16:00:15 04/11/2023 14:35:58 Breech presentation 1182874 O32.1XX9 Routine an tenatal care 691842768 Z34.02 [id number] Elizabeth Zapata MD [facility] [address],[place] [address] 04/16/2023 17:31:31 04/18/2023 14:39:24 Breech presentation 1856545 O32.1XX9 Routine an tenatal care 073513260 Z34.02 [id number] April Gore [facility] [address],[place] [address] 04/23/2023 10:07:33 04/23/2023 10:09:47 Breech presentation 1894330 O32.1XX9 [id number] FERNANDO ARMENTA MD [facility] [address],[place] [address] 04/26/2023 15:15:05 04/26/2023 18:00:51 state 80263626 Z39.2 - s/p C section 06/20/23- incision well healed, ok to remove steri strips as needed- return to clinic in 4-5 weeks for visit- return precaution s discussed [id number] FERNANDO ARMENTA MD [facility] [address],[place] [address] 05/21/2023 13:50:05 05/21/2023 15:21:18 care 100796811 Z39.2 S/p PLTCS 4 weeks ago here today for a visit.1. Patient recovering well2. Plans to continue breastfeed ing3. Not interested in contracept ion at this time. Risks, benefits, and alternativ es reviewed with the patient4. Patient instructed to follow up in 1 year for well woman exam unless need arises prior [id number] TITUS Aragon [facility] [address],[place] [address] 01/23/2024 16:27:13 01/23/2024 17:01:11 Gynecologic examination 91791432 Z01.419 WWEBC - declinedpa p due 2024declin [...] 04/16/2023 1 [place] [id number] Ivelisse Gao [id number] Ivelisse Gao 04/20/2023 1 [place] [id number] Ivelisse Gao [id number] Ivelisse Gao 04/26/2023 1 [place] [id number] Ivelisse Sima [id number] Ivelisse Gao 05/21/2023 1 [place] [id number] Ivelisse Gao [id number] Ivelisse Gao 01/23/2024 1 [place] [id number] Ivelisse Gao [id number] Ivelisse Gao Notes Date Note Type [...] good. FERNANDO ARMENTA MD [address], [place], [address], [facility] 04/26/2023 17:55:30 05/21/2023 text/html S/P PLTCS [...] interval FERNANDO ARMENTA MD [address], [place], [address], [facility] 05/21/2023 15:06:35 01/23/2024 text/html Annual [...] use; Encourage regular mammograms starting age 39Notes:28yo [id number]/p c/s 04/20/2023 - formula feedingWWEBC - withdrawallast pap 10/2021 : [id number], 2019, 2018 : all normalmonthly periods TITUS Aragon [address], [place], [address], [facility] 01/23/2024 17:00:11 OBGyn Episode Ob Episode Information Episode Created Date Number of Fetuses Patient Bloodtype Patient rh Status Prepregnancy Weight lbs Domestic Partner Domestic Partner Phone Father Name Greens Planter Status 11/02/19 23 1 B Positive 189 CLOSED Fetus Data First Name Last Name Admitted to NICU Weight (g) Sex Living Outcome Pediatric Complications Fetus ID Race Codes Race Delivery Type 3742.13 4 M true Full Term [id number] Primary Problems Problem Notes pt. declines cf/sma/niptBREE CH at 38w Problem Name Start Date End Date Resolution Snomed Code Not e History of SARS-CoV-2 12/29/2022 9659340 [id number] ASA & serial growth Breech presentation 03/27/2023 7624784 Lito Calculation Initial Lito Date Initial Exam [...] Gestation 0 [email or web address] 11/01/2022 04/26/20 23 0 Pre- Flowsheet Flowsheet Date 11/01/2022 Pineda Score Blood Edema Fundus Height Fundus Units Glucose Ketones Leukocytes Nitrite Labor Signs Protein Cervic Dilation Cervic Effacement Cervic Station 14 Type Weight in lbs Pre/Post Dialysis Refused Weight 191.779405153513 BP Diastolic BP Location Tested BP Systolic [...] Weight in lbs Pre/Post Dialysis Refused Weight 198.523496233186 BP Diastolic BP Location Tested BP Systolic [...] Weight in lbs Pre/Post Dialysis Refused Weight 205.411917260661 BP Diastolic BP Location Tested BP Systolic [...] Weight in lbs Pre/Post Dialysis Refused Weight 216.353863332474 BP Diastolic BP Location Tested BP Systolic [...] Weight in lbs Pre/Post Dialysis Refused Weight 220.048968140473 BP Diastolic BP Location Tested BP Systolic [...] Weight in lbs Pre/Post Dialysis Refused Weight 222.86943511664 BP Diastolic BP Location Tested BP Systolic [...] Weight in lbs Pre/Post Dialysis Refused Weight 227.781192450598 BP Diastolic BP Location Tested BP Systolic [...] Weight in lbs Pre/Post Dialysis Refused Weight 232.05668268771 BP Diastolic BP Location Tested BP Systolic [...] Weight in lbs Pre/Post Dialysis Refused Weight 233.082817333059 BP Diastolic BP Location Tested BP Systolic [...] Weight in lbs Pre/Post Dialysis Refused Weight 236.533113085600 BP Diastolic BP Location Tested BP Systolic [...] Weight in lbs Pre/Post Dialysis Refused Weight 240.734555086397 BP Diastolic BP Location Tested BP Systolic [...] Weight in lbs Pre/Post Dialysis Refused Weight 242.422924449008 BP Diastolic BP Location Tested BP Systolic [...] Estim ated Date of Delivery false Thalassemia (Slovak, Citizen Of [place], Mediterranean, Or Background): MCV < 80 false Neural Tube Defect (Meningomyelocele, Spina Bifi da, Or Anencephaly) false Congenital Heart Defect false Down Syndrome false Doron-Sachs (eg, Sabianist, Cajun, Thai-Vietnamese) f alse Alphonse Disease false Sickle Cell Disease Or Trait () false Hemophilia Or Other Blood Disorders false Muscular Dystrophy false Cystic Fibrosis false William's Chorea false Intellectual Disability/Autism false If Yes, [...]
[2024-09-11 11:18] LABS: Influenza A QL RT-PCR Positive (Negative); Influenza B QL RT-PCR Negative (Negative); RSV RNA, RT-PCR Negative (Negative); SARS-CoV-2 RNA PCR Negative (Negative)
== END 2024-09-11 09:16 | disposition home or self-care (01) ==
PROVIDERS: PCP Family Medicine; Visit Provider Physician Assistant Medical
DX: R05.9 Cough, unspecified (principal); R50.9 Fever, unspecified; Z20.822 Contact with and (suspected) exposure to COVID-19
CPT/HCPCS: 71046; 87637

== ENCOUNTER 2024-10-24 07:03 | Outpatient (RCR) | payer OTHER, SELFPAY ==
[2024-10-20 11:02] LABS: Beta HCG Quantitative 59.26 mIU/ML
--- OUTSIDE RECORDS SUMMARY | 2024-10-20 11:18 | XMS_ITS | Clinical Summary ---
Author Organization [facility] Address [address] [place] [address] Care Team Providers Care Oil Refinery Process Technician Name Role Phone Fredi Hankins MD Primary Care Provider [phone] Allergies Active Allergy Reactions Criticality Noted Date Comments Agave Other (see comment) 07/07/2024 Flu like symptoms Social History Tobacco Use Types Packs/Day Years Used Date Smoking Tobacco: Never Smokeless Tobacco: Never Tobacco Cessation:Counseling Given: No Alcohol Use Standard Drinks/Week Comments Yes 0 (1 standard drink = 0.6 oz pur e alcohol) Comments Unknown Sex and Gender Information Value Date Recorded Sex Assigned at Not on file Legal Sex Female 3:51 PM DOUBLE BACKER Gender Identity Not on file Sexual Orientation Not on file Last Filed Vital Signs Vital Sign Reading Time Taken Comments Blood Pressure 134/76 07/07/2024 11:28 AM DOUBLE BACKER Pulse 64 07/07/2024 11:28 AM DOUBLE BACKER Temperature 37.4 C (99.3 F) 07/07/2024 11:28 AM DOUBLE BACKER Respiratory Rate 18 07/07/2024 11:2 8 AM DOUBLE BACKER Oxygen Saturation 100% 07/07/2024 11: 28 AM DOUBLE BACKER Inhaled Oxygen Concentration - - Weight 91.1 kg (200 lb 12.8 oz) 024 11:28 AM DOUBLE BACKER Height 175.3 cm (5' 9 ) 07/07/2024 11:2 8 AM DOUBLE BACKER Body Mass Index 29.65 07/07/2024 11:28 AM DOUBLE BACKER Plan of Treatment Health Maintenance Due Date Last Done Comments Cervical Cancer Screening Pa p Smear (Age 21 to 29) Every 3 Years 1994 Cervical Cancer Screening 1994 PHQ-2 (Physician Elim Ira) 2006 Hepatitis C 2012 Hepatitis B Vaccines (1 of 3 - 19+ 3-dose series) 2013 COVID-19 Vaccine (1 - 2023-2 5 season) 2024 Influenza Adult (#1) 2024 PHQ-2 (Physician Elim Ira) 07/30/2024 Annual Physical 07/07/2025 07/07/2024 DTaP, Tdap [...] on patient's age to complete this topic Care Teams Oil Refinery Process Technician Relationship Specialty Start Date End Date Fredi Hankins MD [address] [facility] [address] [place] [address] PCP - General FAMILY PRACTICE 07/07/24
--- OUTSIDE RECORDS SUMMARY | 2024-10-20 11:19 | XMS_ITS | Data Portability ---
Author Organization [facility] Address [address] [place] [address] Care Team Providers Care Solar Installation Helper Name Role Phone BEST RUGGIERO Primary Care Provider [phone] Assessment Encounter Date Assessment Date Assessment LastModified by Organization Details LastModified Time 01/23/2024 01/23/2024 Annual gynecological exam performed. Patient will come back in a year unless there are new symptoms. [email or web address] Not available 01/23/2024 16:34:08 Plan of Treatment Reminders Order Date Submit Date Provider Last Modified By Organization Details Last Modified Time Details Appointments U/S OB DATING/ VIABILI TY 2024 03:30P M ULTRASOUND Not available Not available Not available OB SCREEN 2024 04:00P M FERNANDO ARMENTA MD Not available Not available Not available Lab None recorde d. Referral None recorde d. Procedures None recorde d. Surgeries None recorde d. Imaging None recorde d. Medication Orders None recorde d. Patient TargetsNo targets recorded. Patient InstructionsNo instructions recorded. Reason for Referral None Reported. Results Created Date Observation Date Name Description Value Unit Range Abnormal Flag Note LastModifiedBy Organization Detail LastModifiedTime 03/19/20 23 03/19/2023 US, obste tric, follo w-up No observ ation record ed. [email or web address] [facility] [address], [place], [address], 03/19/2023 18:13:43 03/19/20 23 03/19/2023 US, obste tric, follo w-up No observ ation record ed. MONIQUE Elicia [address], [place], [address], 03/26/2023 10:04:48 04/10/20 23 04/10/2023 US, obste tric, follo w-up No observ ation record ed. [facility] [address], [place], [address], 04/10/2023 17:21:42 04/10/20 23 04/10/2023 US, obste tric, follo w-up No observ ation record ed. MONIQUE Elicia [address], [place], [address], 05/06/2023 05:25:50 Result Notes None recorded. Problems Name Problem SNOMED Code Status Onset Date Resolution Date Notes Provider Name and Address Organization Details Recorded Time Pregnanc y 64865011 Completed 202204/26/2023 Ramona Barron null, [facility] 3 15:14:11 SARS-CoV -2 Completed ASA & serial growth Elizabeth Zapata MD [address], [place], [address], [facility] 3 16:24:20 History of SARS-CoV -2 95375864244 4934534 Completed 2022 ASA & serial growth Jhonnyy Beatrice null, [facility] 3 15:14:05 History of SARS-CoV -2 89458633236 4538026 Active 2022 ASA & serial growth Nedaaney Beatrice null, [facility] 3 15:14:05 Breech presenta tion 9138202 Completed 2022 Jhonnyy Beatrice null, [facility] 3 15:14:05 Breech presenta tion 2526169 Active 2022 Ramona pleitez, [facility] 15:14:05 Problem Notes None recorded. Procedures Surgical History Date Name Laterality Status Provider Name and Address Organization Details Recorded Time 04/20/20 SECTION (SURG) completed Lyudmila Evans [facility] 04/23/2023 10:38:32 11/11/19 22 Date of Last Pap Smear completed FERNANDO ARMENTA MD [address], [place], [address], [facility] 05/21/2023 14:23:44 07/30/19 08 extraction of wisdom tooth completed Harriet Hinkle [facility] 09/19/2022 17:29:38 Imaging Results Imaging Date Name Status LastModified by Organiz ation Details LastModified Time 03/19/2023 US, obstetric, follow-up completed [address], [place], [address], 03/19/2023 18:13:43 03/19/2023 US, obstetric, follow-up completed MONIQUE Rubi [address], [place], [address], 03/26/2023 10:04:48 04/10/2023 US, obstetric, follow-up completed christoph [facility] [address], [place], [address], 04/10/2023 17:21:42 04/10/2023 US, obstetric, follow-up active MONIQUECHUCK Rubi [address], [place], [address], 05/06/2023 05:25:50 Procedure Notes None recorded. Medical [...] Updated DateTime 04/16/2023 170.18 cm 37.9 kg/m2 430340.3 5354 g 123 mm[Hg] 76 mm[Hg] Mora Gilmore [facility] 3 17:35:52 Date Recorded Body height Body mass index (BMI) Body weight Systolic blood pressure Diastolic blood pressure Provider Name and Address Organization Details Last Updated DateTime 04/26/2023 170.18 cm 35.9 kg/m2 038356.6 5 g 135 mm[Hg] 83 mm[Hg] [facility] 3 15:22:27 Date Recorded Body height Body mass index (BMI) Body weight Systolic blood pressure Diastolic blood pressure Provider Name and Address Organization Details Last Updated DateTime 05/21/2023 170.18 cm 34.1 kg/m2 06029.42 g 118 mm[Hg] 77 mm[Hg] [facility] 3 14:06:03 Date Recorded Body height Body mass index (BMI) Body weight Systolic blood pressure Diastolic blood pressure Provider Name and Address Organization Details Last Updated DateTime 01/23/2024 170.18 cm 32.3 kg/m2 17472.03 g 123 mm[Hg] 75 mm[Hg] Chelsea Ansari [facility] 4 16:38:27 Social History Question Answer Notes LastModified by Organizat ion Details LastModified Time Tobacco Smoking Status [facility] 11/01/2022 17:18:12 What Is Your [...] Is Your Level Of Caffeine Consumption? Occasional [email or web address] Information not available 09/19/2022 How Much Tobacco Do You Chew? None [email or web address] Information not available 09/19/2022 In The 14 Days Before Symptom Onset, Have You Had Close Contact With A Laboratory-confirm ed COVID-19 While That Case Was Ill? No [email or web address] Information n ot available 09/19/2022 In The 14 Days Before Symptom Onset, Have You Had Close Contact With A Person Who Is Under Investigation For COVID-19 While That Person Was Ill? No [email or web address] Information not available 09/19/2022 Have You Been To An Area Known To Be High Risk For COVID-19? No [email or web address] Information not available 09/19/2022 Are You Deaf Or Do You Have Serious Difficulty Hearing? No Information not available 11/10/2021 What Type Of Diet Are You Following? REGULAR Information n ot available 11/10/2021 What Is The Highest Grade Or Level Of School You Have Completed Or The Highest Degree You Have Received? [id number] [email or web address] Information not available 09/19/2022 What Is Your Occupation? [employer] [email or web address] Information not available 09/19/2022 Are There Any Guns Present In Your Home? Yes Information not available 11/01/2022 Have You Ever Been Counseled For Unhealthy Alcohol Use? No [email or web address] Information not available 03/26/2023 Do You Use Protection During Sex? No Information not available 09/19/2022 Do You Use Your Seat Belt Or Car Seat Routinely? Yes [email or web address] Information not available 09/19/2022 Do You Have Smoke And Carbon Monoxide Detectors In Your Home? Yes [email or web address] Information not available 09/19/2022 How Much Tobacco Do You Smoke? No [email or web address] Information not available 09/19/2022 Do You Feel Stressed (tense, Restless, Nervous, Or Anxious, Or Unable To Sleep At Night)? [id number] Information not available 11/01/2022 Do You Use Any Illicit Or Recreational Drugs? No [email or web address] Information not available 09/19/2022 Do You Use Sunscreen Routinely? Yes [email or web address] Information not available 09/19/2022 Have You Used IV Drugs? No [email or web address] Information not available 09/19/2022 Sex: Unknown Functional [...] LastModified Time Mother Disorder of thyroid gland [email or web address] Not available 09/19 17:19:13 Father Anxiety disorder [email or web address] Not available 09/19 17:19:13 Father Depressive disorder [email or web address] Not available 09/19 17:19:13 Notes:Mother: No history [...] SNOMED-CT Code Diagnosis ICD10 Code Diagnosis Note [id number] Inge Boateng [facility] [address] [address] 05/24/2020 17:43:43 05/25/2020 18:25:02 Gynecologic examination 24968508 Z01.419 Take Calcium with Vitamin D 1200mg [...] today's plan if desired. Pain in pelvis 45704338 R10.2 Pt has been evaluated and endometrio [...] improved or worse. Contracept ion care management 783289861 Z30.9 Discussed all control options in great [...] read and signed. [place]. [id number] TITUS Aragon [facility] [address] [address] 11/10/2021 15:27:36 11/10/2021 17:35:56 Gynecologic examination 57629143 Z01.419 Take Calcium with Vitamin D 1200mg [...] 2014, normals sincePap done todayDecli harman [facility] Pain in pelvis 04835999 R10.2 Constipation 28519200 K5 9.00 [id number] Bruna Garcia [facility] [address] [address] 09/19/2022 16:27:35 09/19/2022 17:35:49 [id number] Inge Boateng [facility] [address] [address] 09/19/2022 16:27:58 09/19/2022 18:17:33 Amenorrhea 42470871 N91.2 Venereal d isease screening 591481253 Z11.3 test positive 488975478 Z32.01 Risk factors addressed: Tobacco Cessation, Safe [...] annual well woman examinatio n and address preventati [facility] . [id number] [facility] [address],[place] [address] 11/01/2022 16:30:32 11/01/2022 17:09:13 with uncertain dates 383920587 Z3A.14 [id number] Cyrus Hardy MD [facility] [address],[place] [address] 11/01/2022 16:30:58 11/01/2022 18:18:43 Routine care 499886182 Z34.92 [id number] Salena Luis [facility] [address],[place] [address] 11/30/2022 16:00:00 11/30/2022 17:34:30 screening for malformation 398259437 Z36.3 [id number] Marianna Harrell CNM [facility] [address],[place] [address] 11/30/2022 16:00:23 11/30/2022 17:42:48 Routine care 213084367 Z34.82 [id number] Elizabeth Zapata MD [facility] [address],[place] [address] 12/29/2022 14:59:28 12/29/2022 16:27:22 Routine care 218925087 Z34.02 History of SARS-CoV-2 29 10872943 29051372 Z86.16 [id number] Bruna Garcia [facility] [address],[place] [address] 12/29/2022 14:59:43 12/29/2022 15:38:13 Pre-existing maternal disease complicating 1631630315 6106 O99.891 U07.1 Z86.16 Z3A.23 [id number] Cyrus Hardy MD [facility] [address],[place] [address] 01/25/2023 14:30:34 01/25/2023 15:17:14 Routine care 861794324 Z34.92 [id number] Cyrus Hardy MD [facility] [address],[place] [address] 02/08/2023 17:28:50 02/09/2023 14:52:11 Routine care 324474291 Z34.92 [id number] [facility] [address],[place] [address] 02/12/2023 17:19:49 02/12/2023 17:57:59 History of SARS-CoV-2 6826009970 07364089 Z86.16 [id number] Elizabeth Zapata MD [facility] [address],[place] [address] 02/19/2023 16:03:06 02/21/2023 09:45:34 Routine care 749997047 Z34.02 [id number] Elizabeth Zapata MD [facility] [address],[place] [address] 03/05/2023 16:16:14 03/05/2023 16:57:38 Routine care 133678784 Z34.02 Reduced fe sybil movement 330243750 O36.8199 [id number] Lisa Arreloa [facility] [address],[place] [address] 03/05/2023 16:39:49 03/05/2023 17:09:20 Reduced movement 546678964 O36.8199 [id number] Bruna Garcia [facility] [address],[place] [address] 03/19/2023 17:31:51 03/20/2023 10:38:08 History of SARS-CoV-2 3476235323 26695471 U07.1 Z86.16 Z3A.34 [id number] Elizabeth Zapata MD [facility] [address],[place] [address] 03/19/2023 17:32:24 03/20/2023 10:38:18 Breech presentation 5621376 O32.1XX9 Routine an tenatal care 135265296 Z34.02 [id number] Elizabeth Zapata MD [facility] [address],[place] [address] 03/26/2023 16:16:45 03/27/2023 10:04:10 Routine care 962987106 Z34.02 Breech presentation 6096 002 O32.1XX9 [id number] Elizabeth Zapata MD [facility] [address],[place] [address] 04/04/2023 15:44:09 04/06/2023 15:15:02 Routine care 731076759 Z34.02 Breech presentation 6096 002 O32.1XX9 [id number] Salena Luis [facility] [address],[place] [address] 04/10/2023 15:59:36 04/10/2023 17:01:58 condition affecting obstetrical care of mother 488499925 O35.3XX0 O32.1XX0 O36.63X0 Z3A.37 [id number] Elizabeth Zapata MD [facility] [address],[place] [address] 04/10/2023 16:00:15 04/11/2023 14:35:58 Breech presentation 9964878 O32.1XX9 Routine an tenatal care 983007931 Z34.02 [id number] Elizabeth Zapata MD [facility] [address],[place] [address] 04/16/2023 17:31:31 04/18/2023 14:39:24 Breech presentation 3943294 O32.1XX9 Routine an tenatal care 651821203 Z34.02 [id number] April Gore ier [facility] [address],[facility] [place] [address] 04/23/2023 10:07:33 04/23/2023 10:09:47 Breech presentation 1872428 O32.1XX9 [id number] FERNANDO ARMENTA MD [facility] [address] [address] 04/26/2023 15:15:05 04/26/2023 18:00:51 state 32410006 Z39.2 - s/p C section 06/20/23- incision well healed, ok to remove steri strips as needed- return to clinic in 4-5 weeks for visit- return precaution s discussed [id number] FERNANDO ARMENTA MD [facility] [address],[place] [address] 05/21/2023 13:50:05 05/21/2023 15:21:18 care 525598414 Z39.2 S/p PLTCS 4 weeks ago here today for a visit.1. Patient recovering well2. Plans to continue breastfeed ing3. Not interested in contracept ion at this time. Risks, benefits, and alternativ es reviewed with the patient4. Patient instructed to follow up in 1 year for well woman exam unless need arises prior [id number] TITUS Aragon [facility] [address],[place] [address] 01/23/2024 16:27:13 01/23/2024 17:01:11 Gynecologic examination 89767960 Z01.419 WWEBC - declinedpa p due 2024declin [...] 04/16/2023 1 [place] [id number] Ivelisse Gao [id number] Ivelisse Gao 04/20/2023 1 [place] [id number] Ivelisse Gao [id number] Ivelisse Gao 04/26/2023 1 [place] 203501[place] Ivelisse Gao [id number] Ivelisse Gao 05/21/2023 1 [place] [id number] Ivelisse Gao [id number] Ivelisse Gao 01/23/2024 1 [place] [id number] Ivelisse Gao [id number] Ivelisse Gao Notes Date Note Type [...] good. FERNANDO ARMENTA MD [address], [place], [address], [facility] 04/26/2023 17:55:30 05/21/2023 text/html S/P PLTCS [...] risks of short interval FERNANDO ARMENTA MD [address], [place], [address], [facility] 05/21/2023 15:06:35 01/23/2024 text/html [...] use; Encourage regular mammograms starting age 39Notes:28yo P1H2307l/p c/s 04/20/2023 - formula feedingWWEBC - withdrawallast pap 10/2021 : [id number], 2019, 2018 : all normalmonthly periods TITUS Aragon [address], [place], [address], [facility] 01/23/2024 17:00:11 OBGyn Episode Ob Episode Information Episode Created Date Number of Fetuses Patient Bloodtype Patient rh Status Prepregnancy Weight lbs Domestic Partner Domestic Partner Phone Father Name Leak Detection Engineer Status 11/02/19 23 1 B Positive 189 CLOSED Fetus Data First Name Last Name Admitted to NICU Weight (g) Sex Living Outcome Pediatric Complications Fetus ID Race Codes Race Delivery Type 3742.13 4 M true Full Term 18650 Primary Problems Problem Notes pt. declines cf/sma/niptBREE CH at 38w Problem Name Start Date End Date Resolution Snomed Code Not e History of SARS-CoV-2 12/29/2022 0880075 17310524804 ASA & serial growth Breech presentation 03/27/2023 1976198 Lito Calculation Initial Lito Date Initial Exam [...] Weight in lbs Pre/Post Dialysis Refused Weight 191.692721283696 BP Diastolic BP Location Tested BP Systolic [...] Present Fetus Movement Comments Flowsheet Date 11/30/2022 Pindea Score Blood Edema Fundus Height Fundus Units Glucose Ketones Leukocytes Nitrite Labor Signs Protein Cervic Dilation Cervic Effacement Cervic Station neg none none trace Type Weight in lbs Pre/Post Dialysis Refused Weight 198.761117819787 BP Diastolic BP Location Tested BP Systolic [...] Weight in lbs Pre/Post Dialysis Refused Weight 205.259558216001 BP Diastolic BP Location Tested BP Systolic [...] Weight in lbs Pre/Post Dialysis Refused Weight 216.958335531682 BP Diastolic BP Location Tested BP Systolic [...] Weight in lbs Pre/Post Dialysis Refused Weight 220.132421419567 BP Diastolic BP Location Tested BP Systolic [...] Weight in lbs Pre/Post Dialysis Refused Weight 222.04706918327 BP Diastolic BP Location Tested BP Systolic [...] Weight in lbs Pre/Post Dialysis Refused Weight 227.002177446729 BP Diastolic BP Location Tested BP Systolic [...] Weight in lbs Pre/Post Dialysis Refused Weight 232.72580907076 BP Diastolic BP Location Tested BP Systolic [...] Weight in lbs Pre/Post Dialysis Refused Weight 233.516110986262 BP Diastolic BP Location Tested BP Systolic [...] Weight in lbs Pre/Post Dialysis Refused Weight 236.101217289087 BP Diastolic BP Location Tested BP Systolic [...] Weight in lbs Pre/Post Dialysis Refused Weight 240.840987647637 BP Diastolic BP Location Tested BP Systolic [...] Weight in lbs Pre/Post Dialysis Refused Weight 242.253033184241 BP Diastolic BP Location Tested BP Systolic [...] Estim ated Date of Delivery false Thalassemia (Kazakh, Guinean, Mediterranean, Or Background): MCV < 80 false Neural Tube Defect (Meningomyelocele, Spina Bifi da, Or Anencephaly) false Congenital Heart Defect false Down Syndrome false Doron-Sachs (eg, Mandaen, Cajun, Telugu-Paige) f alse Alphonse Disease false Sickle Cell Disease Or Trait () false Hemophilia Or Other Blood Disorders false Muscular Dystrophy false Cystic Fibrosis false Hyde's Chorea false Intellectual Disability/Autism false If Yes, [...] None Regional-Sp inal 39.1 Low Transvers e Elizabeth Erickson MD Breech presentat ion, History of SARS-CoV- 2 Discharge Information Feeding Method Contraceptive Method Maternal HG B and HCT Levels
[2024-10-22 08:31] LABS: Beta HCG Quantitative 42.22 mIU/ML
[2024-10-24 08:56] LABS: Beta HCG Quantitative 14.76 mIU/ML
== END 2024-10-31 07:10 | disposition home or self-care (01) ==
LOC: ANHLAB 07:03
PROVIDERS: PCP Family Medicine; Visit Provider Obstetrics & Gynecology
DX: O20.0 Threatened abortion (principal); Z3A.00 Weeks of gestation of pregnancy not specified
CPT/HCPCS: 36415; 84702

== ENCOUNTER 2024-10-31 07:12 | Outpatient (RCR) | payer OTHER, SELFPAY ==
[2024-10-31 08:12] LABS: Beta HCG Quantitative < 2.39 mIU/ML
== END 2025-01-29 23:59 | disposition home or self-care (01) ==
LOC: ANHLAB 07:12
PROVIDERS: PCP Family Medicine; Visit Provider Obstetrics & Gynecology
DX: O03.9 Complete or unspecified spontaneous abortion without complication (principal)
CPT/HCPCS: 36415; 84702

== ENCOUNTER 2025-03-02 15:43 | Outpatient (CLI) | payer OTHER, SELFPAY ==
--- NOTE | ~2025-03-02 | US_ITS ---
EXAMINATION: US OB /maternal detail DATE: 03/06/2025 15:37 CDT INDICATION: Anatomy scan TECHNIQUE: Real-time transabdominal obstetric ultrasound. FINDINGS: There is a single intrauterine gestation in vertex presentation. The placenta is posterior. The tip of the placenta measures 5.1 cm from the internal cervical os. The cervix measures 3.6 cm in length. cardiac activity and movement is noted with a heart rate of 158 beats per minute. Anatomic parameters are as follows The bladder is visualized and is unremarkable. A three-vessel cord is present. Cord insertion is demonstrated to be on the midline. Bilateral kidneys are present without hydronephrosis. The anterior and posterior margins of the diaphragm are continuous. The cervical, thoracic and lumbar spines are covered in their entirety. choroid plexi are visualized, and unremarkable. Lateral ventricles are visualized measuring 5.6 and 5.5 mm, respectively. The falx is visualized. The cerebellum is visualized measuring 19.3 mm, and is sonographically unremarkable. The cisterna magna measures 4.1 mm in anterior to posterior dimension (normal measurement is 2 to 10 mm). The nuchal fold measures 4 mm (greater than 6 mm is considered abnormal). Cine of the four-chamber heart is visualized and is anatomic. Both the right and left ventricular outflow tracts are identified and are unremarkable. Views of the arms, hands, legs and feet were performed and appear grossly unremarkable. Evaluation of the upper lip and nose to confirm their continuity is appreciated on the submitted imag es. The following biometric data were obtained: Biparietal diameter (BPD): 4.3 cm; head circumference (HC): 16.7 cm; abdominal circumference (AC): 13.8 cm; femur length (FL): 2.9 cm. These measurements are concordant. Estimated weight is 274.1 g +/- 41 g, which correlates with the 35th percentile when 07/26/2025 is used as estimated date of delivery. As single measurements, these parameters are each equal to the following estimated gestational ages: BPD: 19 weeks 0 days. HC: 19 weeks 3 days. AC: 19 weeks 2 days. FL: 18 weeks 6 days. estimated gestational age based solely on measurements from this exam is 19 weeks 1 day +/- 1 w [place] 2 days. IMPRESSION: Single intrauterine gestation with an approximate gestational age of 19 weeks and 1 day. Estimated du e date by ultrasound is 07/26/2025. Anatomy scan is complete and within normal limits. Reviewed, dictated and finalized at location A. IMPRESSION: Single intrauterine gestation with an approximate gestational age of 19 weeks a nd 1 day. Estimated due date by ultrasound is 07/26/2025. Anatomy scan is complete and within normal limits.
== END 2025-03-02 15:44 | disposition home or self-care (01) ==
PROVIDERS: PCP Family Medicine; Visit Provider Obstetrics & Gynecology
DX: Z36.9 Encounter for antenatal screening, unspecified (principal)
CPT/HCPCS: 76805